=== PATIENT | male | born 1960 | race Caucasian/White ===

== ENCOUNTER → 2016-12-31 | Outpatient (CLI) | payer OTHER ==
[~2016-12-31] MED LIST: FLV1 PO; MULT-589 PO; THM100 PO
== END | disposition home or self-care (01) ==
LOC: C.LAB 19:55
DX: Z02.83 Encounter for blood-alcohol and blood-drug test (principal)

== ENCOUNTER 2018-09-13 18:27 | Inpatient (IN) ==
[2018-09-13] MEDS ORDERED: MoRPHine SULFATE 4 MG/ML 1 ML CARP\\VIAL IV STA (19:15)
[2018-09-13] MEDS ORDERED: SODIUM CHLORIDE 0.9% 1000ML 1,000 ML IV ONE (19:15)
[2018-09-13 19:44] LABS: Basophils # (auto) 0.01 K/uL (0-0.2); Basophils % (auto) 0.3 %; Eosinophils # (auto) 0.04 K/uL (0-0.5); Eosinophils % (auto) 1.1 %; Hematocrit (blood only) 35.3 % (42-52); Hemoglobin 12.4 g/dL (14.0-18.0); Immature Granulocytes # (auto) 0.01 K/uL (0.00-0.02); Immature Granulocytes % (auto) 0.3 %; Lymphocytes # (auto) 0.51 K/uL (1.2-3.4); Lymphocytes % (auto) 14.6 %; Mean Corpuscular Hgb Conc 35.1 g/dL (32-36); Mean Corpuscular Volume 85.7 fL (80-100); Mean Platelet Volume 9.2 fL (7.4-10.4); Monocytes # (auto) 0.46 K/uL (0.11-0.59); Monocytes % (auto) 13.2 %; Neutrophils # (auto) 2.46 K/uL (1.4-6.5); Neutrophils % (auto) 70.5 %; Platelet Count 114 K/uL (130-400); RDW Coefficient of Variation 16.4 % (11.5-14.5); RDW Standard Deviation 51.3 fL (36.4-46.3); Red Blood Count 4.12 M/uL (4.7-6.1); White Blood Count 3.49 K/uL (4.8-10.8)
[2018-09-13 19:54] LABS: iSTAT Creatinine 0.6 mg/dl (0.6-1.3); iSTAT Hemoglobin 11.9 g/dl (14.0-18.0); iSTAT Ionized Calcium 1.03 mmol/l (1.12-1.32); iSTAT Potassium 2.6 mEq/L (3.3-5.0)
[2018-09-13 20:02] LABS: Albumin Level 2.3 gm/dl (3.4-5.0); BUN Creatinine Ratio 11.7 (10-20); Calcium 8.2 mg/dl (8.5-10.1); Creatinine Clr Calc Pharmacy 102.2 ml/min; Est GFR (African American) 117.2; Est GFR (Non-African American) 101.1; Potassium 2.6 mmol/L (3.5-5.1)
[2018-09-13 20:05] LABS: Albumin Globulin Ratio 0.5 (0.9-2); Bilirubin,Total 1.4 mg/dl (0.2-1); Globulin 4.7 gm/dl (2.5-4.0)
[2018-09-13] MEDS ORDERED: IOVERSOL 100ml IV PRN (20:05)
--- NOTE | 2018-09-13 20:37 | CT Scan Report ---
ABDOMEN AND PELVIS CT WITH IV CONTRAST CT DOSE: 752.15 mGy.cm HISTORY: Abdominal distention. TECHNIQUE: Multiaxial CT images of the abdomen and pelvis were performed following the use of intrave nous contrast. A dose lowering technique was utilized adhering to the principles of ALARA. COMPARISON STUDY: Abdomen and pelvis CT 08/23/2015. FINDINGS: Small bilateral pleural effusions. Bibasilar densities favor subsegmental atelectasis. No p neumatosis. No pneumoperitoneum. Old, healed bilateral rib fractures. Small distal periesophageal olivier ices. Heterogeneous and nodular liver consistent with cirrhosis. No hepatic masses identified. The po rtal vein is patent. The spleen is mildly enlarged. The splenic vein is also patent. Small periumbili ted varices are also noted. Normal bladder. Mild body wall edema. The adrenal glands are unremarkable . The kidneys enhance normally. No hydronephrosis. There is a 3 mm stone within the left renal pelvis . No retroperitoneal lymphadenopathy. Normal caliber abdominal aorta. A few punctate stones within th e gallbladder fundus. No gallbladder wall thickening. Large amount of ascites. A few colonic divertic lorena. No evidence for diverticulitis. No bowel wall thickening or obstruction. Questionable thickening within the proximal to mid colon is likely due to venous congestion from the patient's cirrhosis. No rmal appendix. There is a 6.6 cm cystic lesion at the pancreatic tail. This favors a pseudocyst given the prior pancreatitis at this location. IMPRESSION: 1. Cirrhotic liver with sequela of portal hypertension including splenomegaly, abdominal varices, and a large amount of ascites. 2. Small bilateral pleural effusions. 3. Left-sided nephrolithiasis. No hydronephrosis. 4. No definite bowel wall thickening or obstruction. Normal appendix. 5. There is a 6.6 cm cystic lesion at the pancreatic tail. This favors a pseudocyst given the prior p ancreatitis at this location. 6. Cholelithiasis. Electronically signed by: Angelo Drew M.D. 09/13/2018 8:36 PM
--- NOTE | 2018-09-13 20:47 | XRay Report ---
CHEST AND ABDOMEN 2 VIEWS HISTORY: abdominal distension/constipation COMPARISON: Abdomen and pelvis CT 09/03/2018. FINDINGS: Bibasilar linear densities consistent with subsegmental atelectasis. There are small bilate ral pleural effusions. Low lung volumes. No pneumothorax. The heart is mildly enlarged. Centralizatio n of the bowel consistent with a large volume ascites. Contrast within the urinary system from the re cent CT examination. No evidence for bowel obstruction. Small diverticulum along the right side of the bladder. IMPRESSION: 1. No evidence for bowel obstruction. 2. Large amount of ascites. 3. Small bilateral pleural effusions. Electronically signed by: Angelo Drew M.D. 09/13/2018 8:46 PM
[2018-09-13] MEDS ORDERED: POTASSIUM CHLORIDE 20 MEQ/15 ML UDC PO STA (21:34)
[2018-09-13] MEDS ORDERED: CALCIUM CARBONATE 500 MG CHEWABLE TAB PO STA (21:34)
[2018-09-14] MEDS ORDERED: FUROSEMIDE 40 MG/4 ML VIAL IV STA (01:01)
[2018-09-14] MEDS ORDERED: ONDANSETRON INJ 2 MG/ML 2 ML VIAL IV PRN (01:01)
[2018-09-14] MEDS ORDERED: NITROGLYCERIN SL 0.4 MG/TAB TAB SL PRN (01:01)
[2018-09-14] MEDS ORDERED: POTASSIUM CHLORIDE 10 MEQ TABCR PO STA (01:01)
--- NOTE | 2018-09-14 01:01 | Emergency Department Note ---
Entered by Cydney Gonzales acting as a scribe for History of Present Illness General Chief complaint: Constipation Stated complaint: BLOATING, CONSTIPATION, IBS Time Seen by Provider: 09/13/18 18:56 Source: patient Mode of arrival: ambulatory Limitations: no limitations History of Present Illness Provider complaint: Constipation Onset (ago): week(s) 2 Location: buttocks (rectum) Radiation: non-radiation Pain Consistency: + other (worsening) Maximum Pain Intensity: 5 Quality: + other (constipation) Associated symptoms: + other (Additional sypmtoms: abdominal distension); no nausea/vomiting Treatments prior to arrival: none The patient is a 57 white male w/ PMHx of pancreatitis, alcoholism, alcohol induced fatty liver, thrombocytopenia, and a ventral hernia repair about 3-5 years ago who presents to the ED w/ CC of worsening constipation beginning 2 weeks ago. The patient reports that he still has bowel movements and is passing gas. He also complains of abdominal distension and notes that he has discomfort and pressure in his abdomen, particularly on the left side. He denies any nausea and vomiting. He further denies any history of abdominal surgeries, a paracentesis, and bowel obstructions. He reports that he regularly takes vitamins and uses chewing tobacco and snuff. Home Medications Home Medications Medication Instructions Recorded Confirmed Type ibuprofen [Advil] 200 mg PO Q6H PRN 09/13/18 09/13/18 History caxiepyk-[id number]-YN-lycopen-lutein 1 tab PO DAILY 09/13/18 09/13/18 History [Centrum Silver Men] Allergies Allergy/AdvReac Type Severity Reaction Status Date / Time No Known Allergies Allergy Unverified 08/11/15 15:39 Past Med/Surg History Medical History Pancreatitis (Resolved) Alcoholism (Chronic) Alcohol induced fatty liver (Chronic) Thrombocytopenia (Chronic) Surgical History H/O ventral hernia repair (Chronic) Social History Preferred Language: Bhutanese Communication Ability: Effective 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 and A total of 10 systems reviewed and were otherwise negative Physical Exam Vital Signs Vital Signs - 24 hr 09/13/18 18:34 09/13/18 21:17 09/13/18 22:04 Temperature 36.9 C Temperature Source Oral Sepsis Recent Fever Within 48 Hours No Sepsis Action Taken by Nursing No Action Required Pulse Rate 139 H Pulse Rate [Right Finger] 93 H Respiratory Rate 22 Respiratory Effort / Characteristics Non-Labored Spontaneous Respiratory Depth Normal Respiratory Pattern Regular Blood Pressure 117/79 Blood Pressure [Left Arm] 115/87 Blood Pressure Mean 91 Blood Pressure Mean [Left Arm] 96 Blood Pressure Position Lying Pulse Oximetry 97 96 Oxygen Delivery Method Room Air Room Air Room Air 09/13/18 23:29 09/14/18 00:21 Temperature Temperature Source Sepsis Recent Fever Within 48 Hours Sepsis Action Taken by Nursing Pulse Rate 90 Pulse Rate [Right Finger] 90 Respiratory Rate Respiratory Effort / Characteristics Respiratory Depth Respiratory Pattern Blood Pressure 128/82 Blood Pressure [Left Arm] 128/82 Blood Pressure Mean Blood Pressure Mean [Left Arm] 97 Blood Pressure Position Pulse Oximetry 96 96 Oxygen Delivery Method Room Air Room Air GENERAL: Cachectic, chronically-ill appearing, in no acute distress. EYE EXAM: Normal conjunctiva. PERRL, no anisocoria and EOM's grossly intact w/o pain. OROPHARYNX: No exudate, posterior pharynx is clear, no tonsillar/uvular deviation or swelling. NECK: Supple, no nuchal rigidity, no adenopathy, non-tender. no signs of meningismus. LUNGS: Clear to auscultation. Normal chest wall mechanics. HEART: No MRG. Tachycardic rate and normal rhythm. ABDOMEN: Obvious distension, pressure with palpation but no true pain, no rebound or guarding. BACK: No CVA TTP. SKIN: No rashes and no bruising. UPPER EXTREMITIES: Upper extremities are grossly normal. LOWER EXTREMITIES: No pitting edema. No calf pain. NEURO EXAM: Cranial nerves II-XII grossly intact, normal speech, 5/5 strength throughout, moves all 4 extremities on command w/o issue. Course 1899: The patient was evaluated in room B8, and a complete history and physical examination were performed. 2125: I reviewed the patient's case with Dr. Pepe - HospitalistLe. Dr. Pepe will evaluate the patient for further management. Consultations Consultation #1: I reviewed the patient's case with Dr. Pepe - HospitalistLe. Dr. Pepe will evaluate the patient for further management. Time: 21:26 Administered Medications Ioversol (Optiray 320 100ml) 94 ml IV ONCE PRN PRN Reason: Interaction Checking Stop: 09/17/18 20:04 Last Admin: 09/13/18 20:06 Dose: 94 ml Documented by: [id number] Discontinued Medications Calcium Carbonate (Tums) 1,500 mg PO NOW STA Stop: 09/13/18 21:35 Last Admin: 09/13/18 22:23 Dose: 1,500 mg Documented by: [id number] Sodium Chloride (Nss 1000ml) 1,000 mls @ 999 mls/hr IV .Q1H1M ONE Stop: 09/13/18 20:15 Last Infusion: 09/13/18 20:52 Dose: 0 mls/hr Documented by: [id number] Admin: 09/13/18 19:41 Dose: 999 mls/hr Documented by: [id number] Morphine Sulfate (Morphine Sulfate) 4 mg IV NOW STA Stop: 09/13/18 19:16 Last Admin: 09/13/18 19:40 Dose: 4 mg Documented by: [id number] Potassium Chloride (Heydi Ciel Elix) 40 meq PO NOW STA Stop: 09/13/18 21:35 Last Admin: 09/13/18 22:23 Dose: 40 meq Documented by: [id number] Medical Decision Making Differential Diagnosis Differential diagnosis: Etiologies such as appendicitis, diverticulitis, PUD, biliary pathology, UTI, pancreatitis, obstruction, mesenteric ischemia, aortic pathology, infections, inflammatory bowel disease, renal colic, as well as others were entertained. Medical Records Attestation: I reviewed the patient's medical records. Home Medications Current Medication List: was personally reviewed by me Laboratory Data Attestation: I reviewed the patient's lab results. Result diagrams: 09/13/18 19:31 09/13/18 19:31 Lab Results 09/13/18 09/13/18 09/13/18 Range/Units 19:31 19:31 19:38 WBC 3.49 L (4.8-10.8) K/uL RBC 4.12 L (4.7-6.1) M/uL Hgb 12.4 L (14.0-18.0) g/dL POC Hgb 11.9 L (14.0-18.0) g/dl Hct 35.3 L (42-52) % POC Hct 35 L (42-52) % MCV 85.7 (80-100) fL MCH 30.1 (25-34) pg MCHC 35.1 (32-36) g/dL RDW Std Deviation 51.3 H (36.4-46.3) fL RDW Coeff of Kacie 16.4 H (11.5-14.5) % Plt Count 114 L (130-400) K/uL MPV 9.2 (7.4-10.4) fL Immature Gran % (Auto) 0.3 % Neut % (Auto) 70.5 % Lymph % (Auto) 14.6 % Beckham % (Auto) 13.2 % Eos % (Auto) 1.1 % Baso % (Auto) 0.3 % Immature Gran # (Auto) 0.01 (0.00-0.02) K/uL Neut # (Auto) 2.46 (1.4-6.5) K/uL Lymph # (Auto) 0.51 L (1.2-3.4) K/uL Beckham # (Auto) 0.46 (0.11-0.59) K/uL Eos # (Auto) 0.04 (0-0.5) K/uL Baso # (Auto) 0.01 (0-0.2) K/uL POC Sodium 135 (135-144) mEq/L Sodium 134 L (136-145) mmol/L POC Potassium 2.6 L (3.3-5.0) mEq/L Potassium 2.6 L (3.5-5.1) mmol/L POC Chloride 94 L (101-112) mEq/L Chloride 99 (98-107) mmol/L Carbon Dioxide 28 (21-32) mmol/L POC Total CO2 26 (24-31) mEq/l Anion Gap 7.0 (3-11) POC Anion Gap 19.0 (16-25) mmol/L POC BUN 8 (7-18) mg/dl BUN 9 (7-18) mg/dl Creatinine 0.79 (0.6-1.4) mg/dl POC Creatinine 0.6 (0.6-1.3) mg/dl Est Cr Clr Drug Dosing 102.2 ml/min Est GFR ( Amer) 117.2 Est GFR (Non-Af Amer) 101.1 BUN/Creatinine Ratio 11.7 (10-20) Glucose 94 (70-99) mg/dl POC Glucose (other) 99 (70-99) mg/dl Calcium 8.2 L (8.5-10.1) mg/dl POC Ioniz Calcium Starla 1.03 L (1.12-1.32) mmol/l Total Bilirubin 1.4 H (0.2-1) mg/dl AST 132 H (15-37) U/L ALT 68 (12-78) U/L Alkaline Phosphatase 226 H (45-117) U/L Total Protein 7.0 (6.4-8.2) gm/dl Albumin 2.3 L (3.4-5.0) gm/dl Globulin 4.7 H (2.5-4.0) gm/dl Albumin/Globulin Ratio 0.5 L (0.9-2) Lipase 168 (73-393) U/L Urine Color Urine Appearance Urine pH Ur Specific [place] Urine Protein Urine Glucose (UA) Urine Ketones Urine Blood Urine Nitrite Urine Bilirubin Urine Urobilinogen Ur Leukocyte Esterase Urine WBC (Auto) Urine RBC (Auto) U Hyaline Cast (Auto) U Epithel Cells (Auto) Urine Bacteria (Auto) Ur Renal Epithelial Cell Urine Crystals Calcium Oxalate Crystal Uric Acid Crystals Triple Phos Crystals Other Crystals Amorphous Sediment Granular Casts Waxy Casts RBC Casts WBC Casts Other Casts Urine Mucus Urine Other Urine Trichomonas Urine Yeast Urine Sperm Ur Oval Fat Bodies 09/13/18 Range/Units 21:33 WBC (4.8-10.8) K/uL RBC (4.7-6.1) M/uL Hgb (14.0-18.0) g/dL POC Hgb (14.0-18.0) g/dl Hct (42-52) % POC Hct (42-52) % MCV (80-100) fL MCH (25-34) pg MCHC (32-36) g/dL RDW Std Deviation (36.4-46.3) fL RDW Coeff of Kacie (11.5-14.5) % Plt Count (130-400) K/uL MPV (7.4-10.4) fL Immature Gran % (Auto) % Neut % (Auto) % Lymph % (Auto) % Beckham % (Auto) % Eos % (Auto) % Baso % (Auto) % Immature Gran # (Auto) (0.00-0.02) K/uL Neut # (Auto) (1.4-6.5) K/uL Lymph # (Auto) (1.2-3.4) K/uL Beckham # (Auto) (0.11-0.59) K/uL Eos # (Auto) (0-0.5) K/uL Baso # (Auto) (0-0.2) K/uL POC Sodium (135-144) mEq/L Sodium (136-145) mmol/L POC Potassium (3.3-5.0) mEq/L Potassium (3.5-5.1) mmol/L POC Chloride (101-112) mEq/L Chloride (98-107) mmol/L Carbon Dioxide (21-32) mmol/L POC Total CO2 (24-31) mEq/l Anion Gap (3-11) POC Anion Gap (16-25) mmol/L POC BUN (7-18) mg/dl BUN (7-18) mg/dl Creatinine (0.6-1.4) mg/dl POC Creatinine (0.6-1.3) mg/dl Est Cr Clr Drug Dosing ml/min Est GFR ( Amer) Est GFR (Non-Af Amer) BUN/Creatinine Ratio (10-20) Glucose (70-99) mg/dl POC Glucose (other) (70-99) mg/dl Calcium (8.5-10.1) mg/dl POC Ioniz Calcium Starla (1.12-1.32) mmol/l Total Bilirubin (0.2-1) mg/dl AST (15-37) U/L ALT (12-78) U/L Alkaline Phosphatase (45-117) U/L Total Protein (6.4-8.2) gm/dl Albumin (3.4-5.0) gm/dl Globulin (2.5-4.0) gm/dl Albumin/Globulin Ratio (0.9-2) Lipase (73-393) U/L Urine Color Cancelled Urine Appearance Cancelled Urine pH Cancelled Ur Specific [place] Cancelled Urine Protein Cancelled Urine Glucose (UA) Cancelled Urine Ketones Cancelled Urine Blood Cancelled Urine Nitrite Cancelled Urine Bilirubin Cancelled Urine Urobilinogen Cancelled Ur Leukocyte Esterase Cancelled Urine WBC (Auto) Cancelled Urine RBC (Auto) Cancelled U Hyaline Cast (Auto) Cancelled U Epithel Cells (Auto) Cancelled Urine Bacteria (Auto) Cancelled Ur Renal Epithelial Cell Cancelled Urine Crystals Cancelled Calcium Oxalate Crystal Cancelled Uric Acid Crystals Cancelled Triple Phos Crystals Cancelled Other Crystals Cancelled Amorphous Sediment Cancelled Granular Casts Cancelled Waxy Casts Cancelled RBC Casts Cancelled WBC Casts Cancelled Other Casts Cancelled Urine Mucus Cancelled Urine Other Cancelled Urine Trichomonas Cancelled Urine Yeast Cancelled Urine Sperm Cancelled Ur Oval Fat Bodies Cancelled Imaging Data Radiologist's Impression: Radiology results as stated below per my review and the radiologist's interpretation: CHEST AND ABDOMEN 2 VIEWS HISTORY: abdominal distension/constipation COMPARISON: Abdomen and pelvis CT 09/03/2018. FINDINGS: Bibasilar linear densities consistent with subsegmental atelectasis. There are small bilateral pleural effusions. Low lung volumes. No pneumothorax. The heart is mildly enlarged. Centralization of the bowel consistent with a large volume ascites. Contrast within the urinary system from the recent CT e xamination. No evidence for bowel obstruction. Small diverticulum along the right side of the bladder. IMPRESSION: 1. No evidence for bowel obstruction. 2. Large amount of ascites. 3. Small bilateral pleural effusions. Electronically signed by: Angelo Drew M.D. 09/13/2018 8:46 PM A[address]OMEN AND PELVIS CT WITH IV CONTRAST CT DOSE: 752.15 mGy.cm HISTORY: Abdominal distention. TECHNIQUE: Multiaxial CT images of the abdomen and pelvis were performed following the use of intravenous contrast. A dose lowering technique was utilized adhering to the principles of ALARA. COMPARISON STUDY: Abdomen and pelvis CT 08/23/2015. FINDINGS: Small bilateral pleural effusions. Bibasilar densities favor subsegmental atelectasis. No pneumatosis. No pneumoperitoneum. Old, healed bilateral rib fractures. Small distal periesophageal varices. Heterogeneous and nodular liver consistent with cirrhosis. No hepatic masses identified. The portal vein is patent. The spleen is mildly enlarged. The splenic vein is also patent. Small periumbilical varices are also noted. Normal bladder. Mild body wall edema. The adrenal glands are unremarkable. The kidneys enhance normally. No hydronephrosis. There is a 3 mm stone within the left renal pelvis. No ret roperitoneal lymphadenopathy. Normal caliber abdominal aorta. A few punctate stones within the gallbladder fundus. No gallbladder wall thickening. Large amount of ascites. A few colonic diverticula. No evidence for diverticulitis. No bowel wall thickening or obstruction. Questionable thickening within the proximal to mid colon is likely due to venous congestion from the patient's cirrhosis. Normal appendix. There is a 6.6 cm cystic lesion at the pancreatic tail. This favors a pseudocyst given the prior pancreatitis at this location. IMPRESSION: 1. Cirrhotic liver with sequela of portal hypertension including splenomegaly, abdominal varices, and a large amount of ascites. 2. Small bilateral pleural effusions. 3. Left-sided nephrolithiasis. No hydronephrosis. 4. No definite bowel wall thickening or obstruction. Normal appendix. 5. There is a 6.6 cm cystic lesion at the pancreatic tail. This favors a pseudocyst given the prior pancreatitis at this location. 6. Cholelithiasis. Electronically signed by: Angelo Drew M.D. 09/13/2018 8:36 PM ECG Data Attestation: I personally reviewed and interpreted this ECG as follows: Indication: other (constipation) Rate (beats per minute): 107 Rhythm: sinus tachycardia Findings: + other (normal intervals) and + left axis deviation Blood Pressure Blood Pressure Findings: Normal blood pressure MDM Narrative Patient was seen and evaluated the bedside. The patient reportedly was complaining of some abdominal distention and has been having small incomplete bowel movements. The patient does have prior history of pancreatitis. Patient did have blood work completed along with a CT abdomen pelvis. The patient's CT does show concerning for cirrhotic liver portal hypertension and a pancreatic pseudocyst. Given that he has not had a prior ascites he does have some hypokalemia and his liver dysfunction believe he would benefit from further i npatient treatment possible ascites and hepatology follow-up. Patient was admitted to the medicine service. Impression & Plan Ascites, Liver disease, Abdominal distension, Hypokalemia, Pancreatic pseudocyst Discharge Plan Visit Data *Final* Discharge Date/Time: 09/14/18 00:21 Chief Complaint: Constipation Stated Complaint: BLOATING, CONSTIPATION, IBS ED Provider: Pabliot Combs Discharge Problem: Ascites, Liver disease, Abdominal distension, Hypokalemia, Pancreatic pseudocyst Patient Disposition: Admitted As Inpatient Discharge Instructions Interventions: ED Discharge Assessment Last Done: 09/14/18 00:21 The scribe's documentation has been prepared under my direction and personally reviewed by me in its entirety. I confirm that the note above accurately reflects all work, treatment, procedures, and medical decision making performed by me.
[2018-09-14] MEDS ORDERED: FUROSEMIDE 40 MG in SYRINGE 0 ML IV SCH (01:30)
[2018-09-14] MEDS: POTASSIUM CHLORIDE / WTR 10 MEQ/100 ML PLCT IV SCH ×2 (01:35→02:43)
--- NOTE | 2018-09-14 01:41 | History and Physical Report ---
DATE OF ADMISSION: 09/13/2018 CHIEF COMPLAINT: Distended abdomen. HISTORY OF PRESENT ILLNESS: This patient is a 57-year-old male with past medical history significant for alcoholism and necrotizing pancreatitis who was admitted to [facility] in 07/2015. At that time, he had alcoholic hepatitis, aspiration pneumonitis and necrotizing pancreatitis with alcohol withdrawal and prolonged stay in the hospital, was confused for many days and later he improved and got discharged home. He had a followup with Gastroenterology at that time and had colonoscopy which showed a polyp and was recommended to repeat colonoscopy in 3 years and he seems to be not following with doctors. He states that he quit alcohol in 02/2018. He is not drinking since then. He lives alone. Since last couple of weeks, his abdomen is getting distended and it got worse and worse and now he is very tense and also developed some abdominal discomfort in the left lower quadrant and is taking ibuprofen for his pain. He was not getting better, so he came to the Emergency Room. Imaging studies in the Emergency Room showed cirrhotic liver with portal hypertension including splenomegaly, abdominal varices and a large amount of ascites, small bilateral pleural effusions, 6.6 cm cystic lesion of the pancreatic tail, this favors pseudocyst and cholelithiasis. The patient is afebrile. Hemodynamics are stable. Denies any chest pain. No shortness of breath. No cough. No fever. No headaches. No dizziness. No blurred vision. No earache. No sore throat. No difficulty swallowing. Appetite is good. Currently, feeling hungry and wants to eat. He states he moved his bowels, but no black stools or blood in the stools. Normal bladder movements. He states once in a while he gets some burning micturition. No hematuria. He has swelling in the legs. ALLERGIES: No known drug allergies. PAST MEDICAL HISTORY: As mentioned above. PAST SURGICAL HISTORY: Colonoscopy, laparoscopic inguinal hernia repair and eye surgery. MEDICATIONS: He is currently taking only ibuprofen as needed and multivitamins. FAMILY HISTORY: Significant for mother had lung cancer. Father had a stroke and hypertension. Sister has Parkinson's. Brother has coronary artery disease. SOCIAL HISTORY: He is currently living alone. He quit alcohol in 02/2018. No drug use. REVIEW OF SYMPTOMS: As per HPI. Rest of review of systems negative. PHYSICAL EXAMINATION: GENERAL: The patient is thin and frail, not in acute distress. VITAL SIGNS: Temperature 36.9, pulse 90, respiratory rate 22, blood pressure 128/82 and oxygen 96% on room air. HEENT: No pallor. No icterus. Pupils are equal, round and reactive to light. NECK: No JVD. No neck mass. No carotid bruit. CARDIOVASCULAR: S1, S2 heard. Regular rate and rhythm. No murmur. No gallop. RESPIRATORY SYSTEM: Normal AP diameter. No accessory muscle use. No wheezing. No crackles. ABDOMEN: Tense distention. Mild left lower quadrant tenderness. No guarding. CENTRAL NERVOUS SYSTEM: Cranial nerves II through XII are grossly intact. Nonfocal. EXTREMITIES: Lower extremity edema present. LABORATORY DATA: WBC 3.4, hemoglobin 12.4, hematocrit 35.3 and platelets 114. Sodium 134, potassium 2.6, chloride 99, CO2 of 28, BUN 9, creatinine 0.7, serum glucose 94, calcium 8.2, total bilirubin 1.4, AST 132, ALT 60, alkaline phosphatase 226 and lipase 168. Urinalysis is pending. Chest and abdominal x-ray, no evidence of bowel obstruction, large amount of ascites and small bilateral pleural effusions. CT scan of the abdomen and pelvis with I.V. contrast showed cirrhotic liver with sequelae of portal hypertension including splenomegaly, abdominal varices and large amount of ascites, small bilateral pleural effusions, left-sided nephrolithiasis, no hydronephrosis, no definite bowel wall thickening or obstruction, normal appendix, there is a 6.6 cm cystic lesion at the pancreatic tail, this favors a pseudocyst given the prior pancreatitis at this location and cholelithiasis. Electrocardiogram shows sinus tachycardia at a rate of [address] abnormalities seen. ASSESSMENT AND PLAN: This is a 57-year-old male who presents with abdominal discomfort and distended abdomen. 1. Abdominal discomfort and distended abdomen with tense ascites and CAT scan showing cirrhotic liver, history of alcoholism, he states he quit in 02/2018. We will give a dose of I.V. Lasix. Consult Gastroenterology for possible diagnostic and therapeutic paracentesis. We will empirically place on I.V. Rocephin. The patient has some abdominal discomfort. We will closely monitor on Med/Surg Tele. 2. Hypokalemia. We will replace and follow the laboratories in a.m. 3. Pancytopenia with white blood cells of 3.4, hemoglobin of 12.4 and platelets of 114, most likely from liver cirrhosis. We will follow the laboratories. 4. Alcoholism, he states he quit in 02/2018. We will watch for any alcohol withdrawal. We will place him on multivitamins and thiamine. 5. History of pancreatitis. Lipase is normal. 6. Pancreatic cyst. possible pseudocyst. Await GI input. 7. Deep venous thrombosis prophylaxis, sequential compression devices for now. 8. Disposition: We will closely monitor on Med/Surg Tele. Level 1 full code. MTDD
[2018-09-14] MEDS: cefTRIAXone SODIUM 2,000 MG in DEXTROSE 5% 50 ML IV SCH (03:13)
[2018-09-14 05:55] LABS: Hematocrit (blood only) 31.4 % (42-52); Hemoglobin 11.1 g/dL (14.0-18.0); Mean Corpuscular Hgb Conc 35.4 g/dL (32-36); Mean Corpuscular Volume 85.1 fL (80-100); RDW Coefficient of Variation 16.5 % (11.5-14.5); RDW Standard Deviation 51.5 fL (36.4-46.3); Red Blood Count 3.69 M/uL (4.7-6.1); White Blood Count 2.61 K/uL (4.8-10.8)
[2018-09-14 06:32] LABS: Albumin Level 1.9 gm/dl (3.4-5.0); BUN Creatinine Ratio 14.2 (10-20); Basophils # (auto) 0.02 K/uL (0-0.2); Basophils % (auto) 0.8 %; Bilirubin Direct 0.5 mg/dl (0-0.2); Bilirubin,Total 1.2 mg/dl (0.2-1); Calcium 7.9 mg/dl (8.5-10.1); Creatinine Clr Calc Pharmacy 128.2 ml/min; Echinocytes 1+; Eosinophils # (auto) 0.07 K/uL (0-0.5); Eosinophils % (auto) 2.7 %; Est GFR (African American) 128.6; Est GFR (Non-African American) 110.9; Lymphocytes % (auto) 19.2 %; Magnesium 1.6 mg/dl (1.8-2.4); Mean Platelet Volume 8.9 fL (7.4-10.4); Monocytes % (auto) 19.2 %; Neutrophils # (auto) 1.52 K/uL (1.4-6.5); Neutrophils % (auto) 58.1 %; Platelet Count 91 K/uL (130-400); Potassium 3.7 mmol/L (3.5-5.1)
[2018-09-14] MEDS ORDERED: LORazepam 1 MG/2 ML VIAL IV PRN (07:29)
[2018-09-14] MEDS: MAGNESIUM SULFATE / D5W 1 GM/100 ML BAG IV SCH ×2 (09:21→10:24)
--- NOTE | 2018-09-14 10:28 | Gastrointestinal Consultation ---
Date of Consultation September 14, 2018 Assessment & Plan (1) Ascites: 57 year old male with history of ETOH abuse, sober from ETOH since February 2018 admitted w/ lower extremity edema, abd distention. CT evidence of nodular appearing liver, large volume ascites. He does have chronic thrombocytop enia and elevated LFTs Elevated LFTS - MRCP - HUE, AMA, ASMA - Acute Hep panel Ascites/Edema - Diagnostic echo - Lower extremity duplex - Start low dose diuretics w/ Lasix/Aldactone - Will need diagnostic and therapeutic paracentesis - PLT > 60, INR < 1.6 - Check cell count, culture, cytology, albumin, protein - Should have IV albumin 25% 25G before and large - Low NA diet, less than 2g Cirrhosis - HUE, AMA, ASMA - PT/INR - No ETOH - Low NA diet - Less than 2g tylenol if using - OP EGD - OP colonoscopy Thank you for allowing us to participate in the care of this patient. Please call with any acute changes, questions or concerns. Please see addendum below with additional recommendation from my supervising physician. Present on Admission?: Yes Supervising Physician Co-Signing Physician Notes I performed a history and physical examination of the patient, including spe cifically on physical exam - soft, nontender abdomen. I have discussed the patient's management with Lulu. Please refer to the nurse practitioner's note for the documented findings and plan of care. 57 Male with alcoholic liver cirrhosis admitted with decompensation and ascites related to NSAIDs use. Has pedal edema on exam and tense ascites. Planned for Tap today with LVP. Last alcohol use was 6 months ago per patient. Has Gallstones on sono. Recommend: Tap today MRCP. History of Present Illness Reason for Consultation: ascites Requesting Physician: Dre Attending Physician: Zhao Erickson MD History of Present Illness 57 year old male with history of ETOH abuse, necrotizing pancreatitis, colonic polyp and others below who presented through the ED for evaluation of lower extremity edema and abdominal distention - GI asked to evaluate for cirrhosis w/ ascites. Pt was seen and evaluated, chart reviewed. He is a poor historian. Notes a history of fatty liver. Denies prior diagnosis of cirrhosis. Over the past 2/3 weeks noted lower leg edema and abdominal bloating. At first he thought he was just constipated, however, bloating persisted and worsened despite moving bowels. Decreased appetite but denies nausea, vomiting. No black/bloody stools. Denies any prior black/bloody emesis. No fever, chills, CP, SOB. Diagnosis: presumed ETOH cirrhosis sober 03/15 Decompensations Ascites: new Varices: unknown HE: none Screening EGD: due HCC: February Immunization: unknown CT: Cirrhotic liver with sequela of portal hypertension including splenomegaly, abdominal varices, and a large amount of ascites.Small bilateral pleural effusions.Left-sided nephrolithiasis. No hydronephrosis.No definite bowel wall thickening or obstruction. Normal appendix.There is a 6.6 cm cystic lesion at the pancreatic tail. This favors a pseudocyst given the prior pancreatitis at this location.Cholelithiasis. EGD: none Colonoscopy: One 4 mm polyp in the ascending colon. Resected and retrieved.One 5 mm polyp in the rectum. Resected and retrieved. Diverticulosis in the sigmoid colon.The examined portion of the ileum was normal. The examination was otherwise normal on direct and retroflexion views. Allergies Allergy/AdvReac Type Severity Reaction Status Date / Time No Known Allergies Allergy Unverified 08/11/15 15:39 Home Medications Home Medications Medication Instructions Recorded Confirmed Type ibuprofen [Advil] 200 mg PO Q6H PRN 09/13/18 09/13/18 History zrajyppo-[id number]-ES-lycopen-lutein 1 tab PO DAILY 09/13/18 09/13/18 History [Centrum Silver Men] Patient History Medical History Pancreatitis (Resolved) Alcoholism (Chronic) Alcohol induced fatty liver (Chronic) Thrombocytopenia (Chronic) Surgical History H/O ventral hernia repair (Chronic) Social History Preferred Language: Upper Sorbian Communication Ability: Effective 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 Beliefs That Will Affect Care: Moravian Moravian Beliefs: Denominational marital status: Current Living Situation: Alone current occupational status: employed Other Information That Helps Us Care for You: No Feels Safe at Home: Yes Safety Concerns: Feels Safe At This Time Smoking Status: Never smoker Tobacco Type: smokeless tobacco Cigarettes Per Day: 1 can of snuff per week Do You Dip or Chew Tobacco: Yes Hx Alcohol Use: Yes Alcohol type: beer Hx Substance Use: No Review of Systems Constitutional: + anorexia; no fever, no chills and no fatigue Respiratory: no cough, no dyspnea and no wheezing Cardiovascular: no chest pain, no radiating jaw, neck or arm pain, no dyspnea and no palpitations Gastrointestinal: + bloating, + early satiety and + nausea; no abdominal pain, no heartburn, no vomiting, no coffee ground emesis, no hematemesis, no pain with swallowing, no dysphagia, no cramping, no excessive flatulence, no change in bowel habits, no change in stools, no constipation, no diarrhea/loose stools, no fecal incontinence, no constant urge to pass stools, no blood in stools and no melena Physical Exam Constitutional: + thin and + cachectic Respiratory: normal respiratory effort, lungs clear to auscultation Cardiovascular: Rate/Rhythm: regular rate and regular rhythm Extremities: + edema Gastrointestinal (Abdomen): Inspection/Auscultation: + abdomen distended and normal bowel sounds Percussion/Palpation: + ascites (large abd ascites); no guarding and abdomen not rigid Skin: no rashes, warm and dry Psychiatric: Orientation: alert and oriented x 3 Results & Data Vital Signs (Past 12 Hours) Vital Signs Temp Pulse Pulse Resp BP BP Pulse Ox 09/14/18 07:42 37.0 C 96 H 18 131/88 92 09/14/18 04:59 107 H 09/14/18 04:14 36.6 C 72 18 121/86 94 09/14/18 00:21 90 128/82 96 09/13/18 23:29 90 128/82 96 Laboratory Results 09/14/18 09/14/18 09/14/18 Range/Units 07:39 05:22 05:22 WBC 2.61 L (4.8-10.8) K/uL RBC 3.69 L (4.7-6.1) M/uL Hgb 11.1 L (14.0-18.0) g/dL POC Hgb (14.0-18.0) g/dl Hct 31.4 L (42-52) % POC Hct (42-52) % MCV 85.1 (80-100) fL MCH 30.1 (25-34) pg MCHC 35.4 (32-36) g/dL RDW Std Deviation 51.5 H (36.4-46.3) fL RDW Coeff of Kacie 16.5 H (11.5-14.5) % Plt Count 91 L (130-400) K/uL MPV 8.9 (7.4-10.4) fL Immature Gran % (Auto) 0.0 % Neut % (Auto) 58.1 % Lymph % (Auto) 19.2 % Taylor % (Auto) 19.2 % Eos % (Auto) 2.7 % Baso % (Auto) 0.8 % Immature Gran # (Auto) 0.00 (0.00-0.02) K/uL Neut # (Auto) 1.52 (1.4-6.5) K/uL Lymph # (Auto) 0.50 L (1.2-3.4) K/uL Taylor # (Auto) 0.50 (0.11-0.59) K/uL Eos # (Auto) 0.07 (0-0.5) K/uL Baso # (Auto) 0.02 (0-0.2) K/uL Echinocytes 1+ POC Sodium (135-144) mEq/L Sodium 132 L (136-145) mmol/L POC Potassium (3.3-5.0) mEq/L Potassium 3.7 D (3.5-5.1) mmol/L POC Chloride (101-112) mEq/L Chloride 100 (98-107) mmol/L Carbon Dioxide 27 (21-32) mmol/L POC Total CO2 (24-31) mEq/l Anion Gap 5.0 (3-11) POC Anion Gap (16-25) mmol/L POC BUN (7-18) mg/dl BUN 9 (7-18) mg/dl Creatinine 0.63 (0.6-1.4) mg/dl POC Creatinine (0.6-1.3) mg/dl Est Cr Clr Drug Dosing 128.2 ml/min Est GFR ( Amer) 128.6 Est GFR (Non-Af Amer) 110.9 BUN/Creatinine Ratio 14.2 (10-20) Glucose 87 (70-99) mg/dl POC Glucose (other) (70-99) mg/dl Calcium 7.9 L (8.5-10.1) mg/dl POC Ioniz Calcium Starla (1.12-1.32) mmol/l Magnesium 1.6 L (1.8-2.4) mg/dl Total Bilirubin 1.2 H (0.2-1) mg/dl Direct Bilirubin 0.5 H (0-0.2) mg/dl AST 106 H (15-37) U/L ALT 58 (12-78) U/L Alkaline Phosphatase 191 H (45-117) U/L Total Protein 6.0 L (6.4-8.2) gm/dl Albumin 1.9 L (3.4-5.0) gm/dl Globulin (2.5-4.0) gm/dl Albumin/Globulin Ratio (0.9-2) Lipase (73-393) U/L Folate 3.95 L (>5.38) ng/ml Urine Color Urine Appearance Urine pH Ur Specific Pup[place]ky Urine Protein Urine Glucose (UA) Urine Ketones Urine Blood Urine Nitrite Urine Bilirubin Urine Urobilinogen Ur Leukocyte Esterase Urine WBC (Auto) Urine RBC (Auto) U Hyaline Cast (Auto) U Epithel Cells (Auto) Urine Bacteria (Auto) Ur Renal Epithelial Cell Urine Crystals Calcium Oxalate Crystal Uric Acid Crystals Triple Phos Crystals Other Crystals Amorphous Sediment Granular Casts Waxy Casts RBC Casts WBC Casts Other Casts Urine Mucus Urine Other Urine Trichomonas Urine Yeast Urine Sperm Ur Oval Fat Bodies 09/13/18 09/13/18 09/13/18 Range/Units 21:33 19:38 19:31 WBC (4.8-10.8) K/uL RBC (4.7-6.1) M/uL Hgb (14.0-18.0) g/dL POC Hgb 11.9 L (14.0-18.0) g/dl Hct (42-52) % POC Hct 35 L (42-52) % MCV (80-100) fL MCH (25-34) pg MCHC (32-36) g/dL RDW Std Deviation (36.4-46.3) fL RDW Coeff of Kacie (11.5-14.5) % Plt Count (130-400) K/uL MPV (7.4-10.4) fL Immature Gran % (Auto) % Neut % (Auto) % Lymph % (Auto) % Taylor % (Auto) % Eos % (Auto) % Baso % (Auto) % Immature Gran # (Auto) (0.00-0.02) K/uL Neut # (Auto) (1.4-6.5) K/uL Lymph # (Auto) (1.2-3.4) K/uL Taylor # (Auto) (0.11-0.59) K/uL Eos # (Auto) (0-0.5) K/uL Baso # (Auto) (0-0.2) K/uL Echinocytes POC Sodium 135 (135-144) mEq/L Sodium 134 L (136-145) mmol/L POC Potassium 2.6 L (3.3-5.0) mEq/L Potassium 2.6 L (3.5-5.1) mmol/L POC Chloride 94 L (101-112) mEq/L Chloride 99 (98-107) mmol/L Carbon Dioxide 28 (21-32) mmol/L POC Total CO2 26 (24-31) mEq/l Anion Gap 7.0 (3-11) POC Anion Gap 19.0 (16-25) mmol/L POC BUN 8 (7-18) mg/dl BUN 9 (7-18) mg/dl Creatinine 0.79 (0.6-1.4) mg/dl POC Creatinine 0.6 (0.6-1.3) mg/dl Est Cr Clr Drug Dosing 102.2 ml/min Est GFR ( Amer) 117.2 Est GFR (Non-Af Amer) 101.1 BUN/Creatinine Ratio 11.7 (10-20) Glucose 94 (70-99) mg/dl POC Glucose (other) 99 (70-99) mg/dl Calcium 8.2 L (8.5-10.1) mg/dl POC Ioniz Calcium Starla 1.03 L (1.12-1.32) mmol/l Magnesium (1.8-2.4) mg/dl Total Bilirubin 1.4 H (0.2-1) mg/dl Direct Bilirubin (0-0.2) mg/dl AST 132 H (15-37) U/L ALT 68 (12-78) U/L Alkaline Phosphatase 226 H (45-117) U/L Total Protein 7.0 (6.4-8.2) gm/dl Albumin 2.3 L (3.4-5.0) gm/dl Globulin 4.7 H (2.5-4.0) gm/dl Albumin/Globulin Ratio 0.5 L (0.9-2) Lipase 168 (73-393) U/L Folate (>5.38) ng/ml Urine Color Cancelled Urine Appearance Cancelled Urine pH Cancelled Ur Specific [place] Cancelled Urine Protein Cancelled Urine Glucose (UA) Cancelled Urine Ketones Cancelled Urine Blood Cancelled Urine Nitrite Cancelled Urine Bilirubin Cancelled Urine Urobilinogen Cancelled Ur Leukocyte Esterase Cancelled Urine WBC (Auto) Cancelled Urine RBC (Auto) Cancelled U Hyaline Cast (Auto) Cancelled U Epithel Cells (Auto) Cancelled Urine Bacteria (Auto) Cancelled Ur Renal Epithelial Cell Cancelled Urine Crystals Cancelled Calcium Oxalate Crystal Cancelled Uric Acid Crystals Cancelled Triple Phos Crystals Cancelled Other Crystals Cancelled Amorphous Sediment Cancelled Granular Casts Cancelled Waxy Casts Cancelled RBC Casts Cancelled WBC Casts Cancelled Other Casts Cancelled Urine Mucus Cancelled Urine Other Cancelled Urine Trichomonas Cancelled Urine Yeast Cancelled Urine Sperm Cancelled Ur Oval Fat Bodies Cancelled 09/13/18 Range/Units 19:31 WBC 3.49 L (4.8-10.8) K/uL RBC 4.12 L (4.7-6.1) M/uL Hgb 12.4 L (14.0-18.0) g/dL POC Hgb (14.0-18.0) g/dl Hct 35.3 L (42-52) % POC Hct (42-52) % MCV 85.7 (80-100) fL MCH 30.1 (25-34) pg MCHC 35.1 (32-36) g/dL RDW Std Deviation 51.3 H (36.4-46.3) fL RDW Coeff of Kacie 16.4 H (11.5-14.5) % Plt Count 114 L (130-400) K/uL MPV 9.2 (7.4-10.4) fL Immature Gran % (Auto) 0.3 % Neut % (Auto) 70.5 % Lymph % (Auto) 14.6 % Taylor % (Auto) 13.2 % Eos % (Auto) 1.1 % Baso % (Auto) 0.3 % Immature Gran # (Auto) 0.01 (0.00-0.02) K/uL Neut # (Auto) 2.46 (1.4-6.5) K/uL Lymph # (Auto) 0.51 L (1.2-3.4) K/uL Taylor # (Auto) 0.46 (0.11-0.59) K/uL Eos # (Auto) 0.04 (0-0.5) K/uL Baso # (Auto) 0.01 (0-0.2) K/uL Echinocytes POC Sodium (135-144) mEq/L Sodium (136-145) mmol/L POC Potassium (3.3-5.0) mEq/L Potassium (3.5-5.1) mmol/L POC Chloride (101-112) mEq/L Chloride (98-107) mmol/L Carbon Dioxide (21-32) mmol/L POC Total CO2 (24-31) mEq/l Anion Gap (3-11) POC Anion Gap (16-25) mmol/L POC BUN (7-18) mg/dl BUN (7-18) mg/dl Creatinine (0.6-1.4) mg/dl POC Creatinine (0.6-1.3) mg/dl Est Cr Clr Drug Dosing ml/min Est GFR ( Amer) Est GFR (Non-Af Amer) BUN/Creatinine Ratio (10-20) Glucose (70-99) mg/dl POC Glucose (other) (70-99) mg/dl Calcium (8.5-10.1) mg/dl POC Ioniz Calcium Starla (1.12-1.32) mmol/l Magnesium (1.8-2.4) mg/dl Total Bilirubin (0.2-1) mg/dl Direct Bilirubin (0-0.2) mg/dl AST (15-37) U/L ALT (12-78) U/L Alkaline Phosphatase (45-117) U/L Total Protein (6.4-8.2) gm/dl Albumin (3.4-5.0) gm/dl Globulin (2.5-4.0) gm/dl Albumin/Globulin Ratio (0.9-2) Lipase (73-393) U/L Folate (>5.38) ng/ml Urine Color Urine Appearance Urine pH Ur Specific [place] Urine Protein Urine Glucose (UA) Urine Ketones Urine Blood Urine Nitrite Urine Bilirubin Urine Urobilinogen Ur Leukocyte Esterase Urine WBC (Auto) Urine RBC (Auto) U Hyaline Cast (Auto) U Epithel Cells (Auto) Urine Bacteria (Auto) Ur Renal Epithelial Cell Urine Crystals Calcium Oxalate Crystal Uric Acid Crystals Triple Phos Crystals Other Crystals Amorphous Sediment Granular Casts Waxy Casts RBC Casts WBC Casts Other Casts Urine Mucus Urine Other Urine Trichomonas Urine Yeast Urine Sperm Ur Oval Fat Bodies (1) Ascites Ascites type: due to alcoholic cirrhosis Qualified Code(s): K70.31 - Alcoholic cirrhosis of liver with ascites
[2018-09-14 11:06] LABS: INR 1.5 (0.9-1.1); Partial Thromboplastin Ratio 1.2; Partial Thromboplastin Time 31.6 Seconds (21.0-31.0); Prothrombin Time 15.1 Seconds (9.0-12.0)
[2018-09-14] MEDS: THIAMINE HCL 100 MG TAB PO SCH (11:22)
[2018-09-14] MEDS: CEROVITE ADV FORMULA TAB PO SCH (11:22)
[2018-09-14 11:26] LABS: Albumin Level 2.3 gm/dl (3.4-5.0); Bilirubin Direct 0.8 mg/dl (0-0.2); Bilirubin,Total 1.4 mg/dl (0.2-1); Ferritin 113.4 ng/ml (8-388); Total Protein 6.7 gm/dl (6.4-8.2)
[2018-09-14 11:37] LABS: Hepatitis B Surface Antigen Neg (Neg)
[2018-09-14 12:06] LABS: Hepatitis C IgG 13Yrs+Old_Rflx Neg (Neg)
[2018-09-14] MEDS ORDERED: ALBUMIN 25% 50 ML IV ONE ×2 (12:47→19:07)
[2018-09-14] MEDS ORDERED: MULTI-VITAMIN INFUSION 10 ML, THIAMINE HCL 100 MG, FOLIC ACID 1 MG in SODIUM CHLORIDE 0... IV SCH (13:15)
[2018-09-14 13:20] LABS: BUN Creatinine Ratio 12.4 (10-20); Calcium 8.1 mg/dl (8.5-10.1); Creatinine Clr Calc Pharmacy 115.4 ml/min; Est GFR (African American) 123.1; Est GFR (Non-African American) 106.2
[2018-09-14 13:22] LABS: Albumin Globulin Ratio 0.5 (0.9-2); Bilirubin,Total 1.3 mg/dl (0.2-1); Globulin 4.2 gm/dl (2.5-4.0); Total Protein 6.2 gm/dl (6.4-8.2)
[2018-09-14 14:05] LABS: Appearance Urine Clear (Clear); Blood Urine Negative (Negative); Color Urine Dark Yellow; Glucose Urine UA Negative (Negative); Ketones Urine Negative (Negative); Leukocyte Esterase Urine Negative (Negative); Nitrite Urine Negative (Negative); Protein Urine Negative (Negative); Specific Gravity Urine 1.041 (1.000-1.030); Urobilinogen Urine Negative (Negative)
[2018-09-14 14:13] LABS: Bilirubin Urine Negative (Negative); Ictotest Urine Negative (Negative)
--- NOTE | 2018-09-14 14:28 | Magnetic Resonance Report ---
MR MRCP CLINICAL HISTORY: gallstones, elevated LFTs, cirrhosis, hx nec pancreatitis COMPARISON STUDY: CT scan dated 09/13/2018 FINDINGS: A breath-hold MRCP was performed. MIP images were acquired. There is a large volume of ascites. The liver has a cirrhotic morphology. The spleen is enlarged measuring 13.5 cm. There is a 6 cm cystic pancreatic mass, possibly representing a pseudocyst. This contains a small leatha unt of debris. No gallstones are visualized. There is no ductal dilatation. There are no filling defects to indicate common bile duct calculi. The examination is limited from a technical standpoint due to the large volume of ascites. IMPRESSION: 1. Moderately limited study from a technical standpoint due to the patient's large volume of ascites 2. Cirrhotic morphology of the liver. 3. Splenomegaly. 4. No evidence of ductal dilatation. No ductal filling defects identified 5. 6 cm cystic pancreatic mass containing debris. This likely represents a pseudocyst. Electronically signed by: Benoit Cowan M.D. 09/14/2018 2:26 PM
--- NOTE | 2018-09-14 15:44 | Hospitalist Progress Note ---
Date of Service September 14, 2018 Assessment & Plan (1) Ascites: Cirrhosis -ascites x 2 weeks -given history of alcoholism, last drink reported by patient as February 2018, there is a good chance that ascites may be due to Cirrhosis -CT abdomen: Cirrhotic liver with sequela of portal hypertension including splenomegaly, abdominal varices, and a large amount of ascites. -paracentesis ordered for 09/14/18 and albumin to be given before paracentesis, will give albumin afterwards when paracentesis is down -will get echocardiogram to assess cardiac function to rule out non-liver source of fluid overload -left lower extremity edema may be from cirrhosis but will obtain lower extremity ultrasound to rule out DVT -continue ceftriaxone empirically in case of Spontaneous bacterial peritonitis -Low NA diet, less than 2g Splenomegaly -seen on MRCP on 09/14/18 -No evidence of bile ductal dilatation on MRCP Pancreatic pseudocyst -6 cm cystic pancreatic mass containing debris. This likely represents a pseudocyst. seen on MRCP on 09/14/18 Transaminitis - gastroenterology service sent HUE, AMA, ASMA, Acute Hep panels Hypoalbumineria -admission serum albumin 1.9 -give albumin before and after the paracentesis Pancytopenia -anemia and thrombocytopenia -admission white blood cells of 3.4, hemoglobin of 12.4 and platelets of 114, most likely from liver cirrhosis Folic acid deficiency -give folic acid Alcoholism in the past -ativan prn if needed in case of ETOH withdrawal -folic acid -multivitamins and thiamine Hyponatremia -admission serum sodium 132 -monitor Hypokalemia -admission serum potassium 2.6 -now repleted to 4, continue to monitor DVT ppx: start SCDs once ultrasound of lower extremities rule out DVT Full Code Subjective Patient seen and examined prior to going down to the MRCP. Patient had distended abdomen. swelling of left lower extremities. no calf tenderness. Patient breathing on room air and no chest pain. denies acute shortness of breath. no vomiting. no fever. reports swelling of abdomen 2 weeks ago Physical Exam Eyes: PERRL, conjunctivae normal, anicteric sclerae EOM intact bilaterally ENMT: external ear and nose normal, oropharynx normal Neck: trachea midline, no thyromegaly normal visual inspection Respiratory: normal respiratory effort, lungs clear to auscultation Cardiovascular: Rate/Rhythm: regular rate and regular rhythm Gastrointestinal (Abdomen): Inspection/Auscultation: + abdomen distended (caput medusae) and normal bowel sounds Musculoskeletal: Head/Neck/Chest: normocephalic and head atraumatic Extremities: + lower leg abnormality (left lower extremity swelling) Neurologic: PERRL, EOMI, accommodation nl, no face palsy, no dysarthria CN's II-XI intact bilaterally Psychiatric: A+Ox3, euthymic affect Results & Data Vital Signs (Past 12 Hours) Vital Signs Temp Pulse Pulse Resp BP BP Pulse Ox 09/14/18 12:37 66 09/14/18 12:09 36.4 C L 108 H 134/94 141/96 H 95 09/14/18 07:42 37.0 C 96 H 18 131/88 92 09/14/18 04:59 107 H 09/14/18 04:14 36.6 C 72 18 121/86 94 (1) Ascites Ascites type: due to alcoholic cirrhosis Qualified Code(s): K70.31 - Alcoholic cirrhosis of liver with ascites
--- NOTE | 2018-09-14 18:36 | Ultrasound Report ---
ULTRASOUND-GUIDED DIAGNOSTIC AND THERAPEUTIC PARACENTESIS: HISTORY: Ascites Procedure: The procedure and its risks, benefits and alternatives were discussed with the patient and written informed consent was obtained. Preliminary ultrasound of the abdomen was performed to determ ine a safe needle entry site. The right lower quadrant was prepped and draped in the usual sterile fashion. 1% Lidocaine was used f or local anesthesia. A paracentesis needle-sheath was inserted into the peritoneal space using ultras ound guidance. The needle was removed and the sheath was connected to tubing and a vacuum suction dev ice. A total of 4 liters of yellow ascites was aspirated. The sheath was removed and a sterile dressi ng applied. The patient tolerated the procedure well and there were no immediate complications. IMPRESSION: Ultrasound-guided therapeutic and diagnostic paracentesis with aspiration of 4 liters of ascites. 1 L was sent to the laboratory at the request of the referring physician. Electronically signed by: Angelo Drew M.D. 09/14/2018 6:27 PM
--- NOTE | 2018-09-14 18:44 | Ultrasound Report ---
BILATERAL LOWER EXTREMITY VENOUS DOPPLER HISTORY: Leg swelling. rule out DVT COMPARISON STUDY: None. FINDINGS: There is normal compressibility, flow, and augmentation within the bilateral lower extremit y deep venous systems. IMPRESSION: No DVT within the right or left lower extremity. Electronically signed by: Angelo Drew M.D. 09/14/2018 6:43 PM
[2018-09-14] MEDS: MAGNESIUM OXIDE 400 MG TAB PO SCH (19:43)
[2018-09-14 20:06] LABS: Appearance Peritoneal Fluid CLEAR; Color Peritoneal Fluid PALE YELLOW; RBC Peritoneal Fluid (A) < 3000 /uL; WBC Peritoneal Fluid (A) 64 /ul (0-300)
[2018-09-14 20:07] LABS: Mononuclear WBC Peritoneal 77.4 %; Polynuclear WBC Peritoneal 22.6 %
[2018-09-14 20:35] LABS: Albumin Peritoneal Fluid < 0.6 g/dl; LDH Peritoneal Fluid 37 U/L; Total Protein Peritoneal Fluid 0.6 g/dl
[2018-09-15] MEDS: cefTRIAXone SODIUM 2,000 MG in DEXTROSE 5% 50 ML IV SCH (02:19)
[2018-09-15 07:10] LABS: Hematocrit (blood only) 30.5 % (42-52); Hemoglobin 10.6 g/dL (14.0-18.0); Mean Corpuscular Hgb Conc 34.8 g/dL (32-36); Mean Corpuscular Volume 86.4 fL (80-100); RDW Coefficient of Variation 16.6 % (11.5-14.5); RDW Standard Deviation 52.7 fL (36.4-46.3); Red Blood Count 3.53 M/uL (4.7-6.1); White Blood Count 2.06 K/uL (4.8-10.8)
[2018-09-15 07:43] LABS: Albumin Level 2.2 gm/dl (3.4-5.0); BUN Creatinine Ratio 14.9 (10-20); Calcium 8.4 mg/dl (8.5-10.1); Creatinine Clr Calc Pharmacy 126.2 ml/min; Est GFR (African American) 127.8; Est GFR (Non-African American) 110.2; Magnesium 1.8 mg/dl (1.8-2.4); Potassium 3.4 mmol/L (3.5-5.1)
[2018-09-15 07:46] LABS: Albumin Globulin Ratio 0.6 (0.9-2); Bilirubin,Total 1.3 mg/dl (0.2-1); Globulin 3.7 gm/dl (2.5-4.0); Total Protein 5.9 gm/dl (6.4-8.2)
[2018-09-15 08:03] LABS: Mean Platelet Volume 9.2 fL (7.4-10.4); Platelet Count 72 K/uL (130-400)
[2018-09-15 08:04] LABS: Basophils # (auto) 0.01 K/uL (0-0.2); Basophils % (auto) 0.5 %; Echinocytes 1+; Eosinophils # (auto) 0.01 K/uL (0-0.5); Eosinophils % (auto) 0.5 %; Lymphocytes # (auto) 0.47 K/uL (1.2-3.4); Lymphocytes % (auto) 22.8 %; Monocytes # (auto) 0.35 K/uL (0.11-0.59); Neutrophils # (auto) 1.22 K/uL (1.4-6.5); Neutrophils % (auto) 59.2 %; Platelet Estimate Decreased (Normal)
[2018-09-15] MEDS: SPIRONOLACTONE 25 MG TAB PO SCH (08:33)
[2018-09-15] MEDS: MAGNESIUM OXIDE 400 MG TAB PO SCH ×2 (08:34→20:56)
[2018-09-15] MEDS: CEROVITE ADV FORMULA TAB PO SCH (08:34)
[2018-09-15] MEDS: THIAMINE HCL 100 MG TAB PO SCH (08:34)
[2018-09-15] MEDS ORDERED: FUROSEMIDE 20 MG TAB PO SCH (09:00)
--- NOTE | 2018-09-15 09:44 | Gastroenterology Progress Note ---
Date of Service September 15, 2018 Assessment & Plan (1) Ascites: 57 year old male with history of ETOH abuse, sober from ETOH since February 2018 admitted w/ lower extremity edema, abd distention. CT evidence of nodular appearing liver, large volume ascites. He does have chronic thrombocytopenia and elevated LFTs. S/P paracentesis w/o evidence of SBP. Ascites likely secondary to portal HTN given high SAAG w/ low total protein but additional fluid studies (cytology) are pending Elevated LFTS - MRCP negative - HUE, AMA, ASMA pending - Acute Hep panel pending Ascites/Edema - Diagnostic echo - Lower extremity duplex - Lasix 20 mg daily - Aldactone 50 mg daily - Repeat therapeutic paracentesis as needed - PLT > 60, INR < 1.6 - Check cell count, culture - Should have IV albumin 25% 25G before and after if more than 3L - Low NA diet, less than 2g Cirrhosis - MELD 12 - No ETOH - Low NA diet - Less than 2g tylenol if using - OP EGD - OP colonoscopy - Pending trend of MELD can consider referral for transplant evaluation GI to sign off. Thank you for allowing us to participate in the care of this patient. Please call with any acute changes, questions or concerns. Please see addendum below with additional recommendation from my supervising physician. Supervising Physician Co-Signing Physician Notes I performed a history and physical examination of the patient, including specifically on physical exam - soft, nontender abdomen. I have discussed the patient's management with Lulu. Please refer to the nurse practitioner's note for the documented findings and plan of care. Tap analysis no SBP Continue diuretics. Repeat another LVP prior to discharge. Follow up as OP in Liver clinic. Subjective pt was seen and evaluated, chart reviewed no acute events noted s/p paracentesis w/ 4 L off No SBP high SAAG w/ low total protein Less abd pain No nausea, vomiting Passed gas, no BM Denies black/bloody stools/emesis Decompensations Ascites: s/p para, lasix 20, aldactone 50 Varices: unknown HE: none Screening EGD: due HCC: February Immunization: unknown CT: Cirrhotic liver with sequela of portal hypertension including splenomegaly, abdominal varices, and a large amount of ascites.Small bilateral pleural effusions.Left-sided nephrolithiasis. No hydronephrosis.No definite bowel wall thickening or obstruction. Normal appendix.There is a 6.6 cm cystic lesion at the pancreatic tail. This favors a pseudocyst given the prior pancreatitis at this location.Cholelithiasis. EGD: none Colonoscopy: One 4 mm polyp in the ascending colon. Resected and retrieved.One 5 mm polyp in the rectum. Resected and retrieved. Diverticulosis in the sigmoid colon.The examined portion of the ileum was normal. The examination was otherwise normal on direct and retroflexion views. Review of Systems Constitutional: no fever and no body aches Respiratory: no cough and no dyspnea Cardiovascular: no chest pain, no radiating jaw, neck or arm pain and no palpitations Gastrointestinal: no abdominal pain, no early satiety, no vomiting, no diarrhea/loose stools, no fecal incontinence, no blood in stools and no melena Physical Exam Constitutional: + cachectic Respiratory: normal respiratory effort, lungs clear to auscultation Cardiovascular: RRR, no murmur, no edema Gastrointestinal (Abdomen): normal bowel sounds, soft, nontender, no hepatosplenomegaly Skin: no rashes, warm and dry Results & Data Vital Signs (Past 12 Hours) Vital Signs Temp Pulse Pulse Resp BP BP Pulse Ox 09/15/18 07:00 36.8 C 90 16 111/74 96 09/15/18 03:23 36.9 C 92 H 16 91/60 L 93 09/15/18 01:37 98 H 09/14/18 22:52 36.7 C 94 H 16 109/74 97 (1) Ascites Ascites type: due to alcoholic cirrhosis Qualified Code(s): K70.31 - Alcoholic cirrhosis of liver with ascites
[2018-09-15] MEDS: FOLIC ACID 1 MG TAB PO SCH (10:08)
[2018-09-15] MEDS ORDERED: FUROSEMIDE 40 MG in SYRINGE 0 ML IV ONE (16:10)
--- NOTE | 2018-09-15 16:14 | Hospitalist Progress Note ---
Date of Service September 15, 2018 Assessment & Plan (1) Ascites: Cirrhosis -ascites x 2 weeks due to liver cirrhosis as new diagnosis -given history of alcoholism, last drink reported by patient as February 2018 -admission CT abdomen: Cirrhotic liver with sequela of portal hypertension including splenomegaly, abdominal varices, and a large amount of ascites. -paracentesis completed on 09/14/18 and 4 liters of fluid removed and no evidence of Spontaneous bacterial peritonitis -stop the empiric ceftriaxone as there is no evidence of Spontaneous bacterial peritonitis based on peritoneal fluid analysis; no malignant cells in peritoneal fluid cytology -patient tolerated tolerated oral lasix 20 mg and oral spirolactone during day time of 09/15/18. will give IV 40 mg Lasix in evening, and plan diuretic as IV lasix 40 mg daily and oral spirolactone starting on 09/16/18 -Low NA diet, less than 2g -monitor fluid status, including the abdomen distention and left lower extremity edema - left lower extremity edema is from fluid overload from cirrohosis as echocardiogram with normal ejection fraction and no DVTs were identified on lower extremity ultrasound Splenomegaly -seen on MRCP on 09/14/18 -No evidence of bile ductal dilatation on MRCP Pancreatic pseudocyst -6 cm cystic pancreatic mass containing debris. This likely represents a pseudocyst. seen on MRCP on 09/14/18 Transaminitis - gastroenterology service sent HUE, AMA, ASMA, Acute Hep panels; results pending Hypoalbumineria -admission serum albumin 1.9 -patient had albumin before and after the paracentesis on 09/15/18 -health assistant consult Pancytopenia -anemia and thrombocytopenia -admission white blood cells of 3.4, hemoglobin of 12.4 and platelets of 114, most likely from liver cirrhosis -continue to trend Folic acid deficiency -deficient on admission labs -give folic acid daily Alcoholism in the past -ativan prn if needed in case of ETOH withdrawal -folic acid -multivitamins and thiamine Hyponatremia -admission serum sodium 132 -has imporved to 137 Hypokalemia -admission serum potassium 2.6 -was repleted and now is 3.4; start daily oral potassium supplements Hypomagnesemia -serum magnesium rising from 1.6 to 1.8, continue daily magnesium supplements DVT ppx: start SCDs once ultrasound of lower extremities rule out DVT Full Code Subjective Patient tolerated oral lasix 20 mg and oral spirolactone during day time. still very distended abdomen and left lower extremity swelling. No acute respiratory distress. breathing on room air. no chets pain. no vomiting. no headache. no dizziness Physical Exam Eyes: PERRL, conjunctivae normal, anicteric sclerae EOM intact bilaterally ENMT: external ear and nose normal, oropharynx normal Neck: trachea midline, no thyromegaly normal visual inspection Respiratory: normal respiratory effort, lungs clear to auscultation Cardiovascular: Rate/Rhythm: regular rate and regular rhythm Gastrointestinal (Abdomen): Inspection/Auscultation: + abdomen distended (caput medusae) and normal bowel sounds Musculoskeletal: Head/Neck/Chest: normocephalic and head atraumatic Extremities: + lower leg abnormality (left lower extremity swelling) Neurologic: PERRL, EOMI, accommodation nl, no face palsy, no dysarthria CN's II-XI intact bilaterally Psychiatric: A+Ox3, euthymic affect Results & Data Vital Signs (Past 12 Hours) Vital Signs Temp Pulse Pulse Resp BP BP Pulse Ox 09/15/18 15:00 36.7 C 93 H 18 112/79 94 09/15/18 11:25 36.8 C 90 18 104/71 98 09/15/18 08:00 91 H 09/15/18 07:00 36.8 C 90 16 111/74 96 (1) Ascites Ascites type: due to alcoholic cirrhosis Qualified Code(s): K70.31 - Alcoholic cirrhosis of liver with ascites
[2018-09-15] MEDS: POTASSIUM CHLORIDE 10 MEQ TABCR PO SCH (17:33)
[2018-09-15] MEDS: HYDROmorphone INJ 0.5 MG/0.5 ML SYR IV PRN (21:42)
[2018-09-16 05:38] LABS: Hematocrit (blood only) 33.3 % (42-52); Hemoglobin 11.2 g/dL (14.0-18.0); Mean Corpuscular Hgb Conc 33.6 g/dL (32-36); Mean Corpuscular Volume 87.6 fL (80-100); RDW Coefficient of Variation 16.4 % (11.5-14.5); RDW Standard Deviation 52.7 fL (36.4-46.3); White Blood Count 2.39 K/uL (4.8-10.8)
[2018-09-16 05:50] LABS: Mean Platelet Volume 8.9 fL (7.4-10.4); Platelet Count 79 K/uL (130-400)
[2018-09-16 06:02] LABS: Basophils # (auto) 0.01 K/uL (0-0.2); Basophils % (auto) 0.4 %; Eosinophils # (auto) 0.03 K/uL (0-0.5); Eosinophils % (auto) 1.3 %; Lymphocytes # (auto) 0.62 K/uL (1.2-3.4); Lymphocytes % (auto) 25.9 %; Monocytes # (auto) 0.35 K/uL (0.11-0.59); Monocytes % (auto) 14.6 %; Neutrophils # (auto) 1.38 K/uL (1.4-6.5); Neutrophils % (auto) 57.8 %
[2018-09-16 06:05] LABS: Albumin Level 2.3 gm/dl (3.4-5.0); BUN Creatinine Ratio 14.1 (10-20); Calcium 7.9 mg/dl (8.5-10.1); Creatinine Clr Calc Pharmacy 98.5 ml/min; Est GFR (African American) 115.4; Est GFR (Non-African American) 99.6; Magnesium 1.8 mg/dl (1.8-2.4); Potassium 3.1 mmol/L (3.5-5.1)
[2018-09-16 06:07] LABS: Albumin Globulin Ratio 0.6 (0.9-2); Bilirubin,Total 1.7 mg/dl (0.2-1); Total Protein 6.3 gm/dl (6.4-8.2)
[2018-09-16] MEDS: MAGNESIUM OXIDE 400 MG TAB PO SCH ×2 (08:35→21:04)
[2018-09-16] MEDS: FOLIC ACID 1 MG TAB PO SCH (08:36)
[2018-09-16] MEDS: SPIRONOLACTONE 25 MG TAB PO SCH (08:36)
[2018-09-16] MEDS: FUROSEMIDE 40 MG in SYRINGE 0 ML IV SCH (08:36)
[2018-09-16] MEDS: THIAMINE HCL 100 MG TAB PO SCH (08:37)
[2018-09-16] MEDS: POTASSIUM CHLORIDE 10 MEQ TABCR PO SCH (08:37)
[2018-09-16] MEDS: CEROVITE ADV FORMULA TAB PO SCH (08:37)
[2018-09-16] MEDS ORDERED: POTASSIUM CHLORIDE 10 MEQ TABCR PO STA (14:40)
--- NOTE | 2018-09-16 15:20 | Hospitalist Progress Note ---
Date of Service September 16, 2018 Assessment & Plan (1) Ascites: Cirrhosis - repeat paracentesis ordered continue Lasix IV, Spironolactone Splenomegaly -seen on MRCP on 09/14/18 -No evidence of bile ductal dilatation on MRCP Pancreatic pseudocyst -6 cm cystic pancreatic mass containing debris. This likely represents a pseudocyst. seen on MRCP on 09/14/18 Transaminitis - gastroenterology service sent HUE, AMA, ASMA, Acute Hep panels; results pending Hypoalbumineria -rn liaison consult Pancytopenia -anemia and thrombocytopenia -admission white blood cells of 3.4, hemoglobin of 12.4 and platelets of 114, most likely from liver cirrhosis -stable Folic acid deficiency -deficient on admission labs -give folic acid daily Alcoholism in the past -ativan prn if needed in case of ETOH withdrawal -folic acid -multivitamins and thiamine Hyponatremia -admission serum sodium 132 improved Hypokalemia -being repleted Hypomagnesemia -serum magnesium rising from 1.6 to 1.8, continue daily magnesium supplements DVT ppx: start SCDs once ultrasound of lower extremities rule out DVT Full Code Disposition pending Subjective ff up for ascites, liver cirrhosis seen resting in bed, comfortable still has abdominal distention denies shortness of breath, abdominal pain no other symptoms Review of Systems Review of Systems: All systems reviewed & are unremarkable except as noted in HPI & below Physical Exam Physical Exam: General- oriented x 3, not in distress, speaks in sentences with no effort or accessory muscle use Head- atraumatic Eyes- PERRL, EOMI, anicteric ENT- oropharynx clear Neck- supple, no JVD, no adenopathy, no thyromegaly; carotids +2/2, no bruits appreciated Lungs- clear to auscultation bilaterally, no rales/wheezes Heart- normal rate, regular rhythm; no murmur, no gallop, no rub appreciated Abdomen- normal bowel sounds, (+) moderate distention, soft, nontender, no masses or hepatosplenomegaly Extremities- Left lower leg- mild edema, no calf tenderness; peripheral pulses intact Neuro- alert, oriented x 3; CN 2-12 grossly intact; motor 5/5 bilaterally;sensation 100% on all extremities; no other gross focal neurologic deficits Skin- warm & dry Results & Data Vital Signs (Past 12 Hours) Vital Signs Temp Pulse Pulse Resp BP BP Pulse Ox 09/16/18 15:02 36.5 C 95 H 21 115/75 97 09/16/18 11:21 36.5 C 100 H 18 113/78 97 09/16/18 07:22 37.2 C 76 20 112/74 97 09/16/18 07:00 96 H 09/16/18 04:19 36.8 C 97 H 18 121/84 95 (1) Ascites Ascites type: due to alcoholic cirrhosis Qualified Code(s): K70.31 - Alcoholic cirrhosis of liver with ascites
[2018-09-16] MEDS: HYDROmorphone INJ 0.5 MG/0.5 ML SYR IV PRN ×2 (15:50→23:50)
[2018-09-16] MEDS: ALBUMIN 25% 50 ML IV SCH ×2 (20:57→20:58)
[2018-09-17] MEDS: SPIRONOLACTONE 25 MG TAB PO SCH (08:37)
[2018-09-17] MEDS: FOLIC ACID 1 MG TAB PO SCH (08:38)
[2018-09-17] MEDS: POTASSIUM CHLORIDE 10 MEQ TABCR PO SCH (08:38)
[2018-09-17] MEDS: FUROSEMIDE 40 MG in SYRINGE 0 ML IV SCH (08:39)
[2018-09-17] MEDS: MAGNESIUM OXIDE 400 MG TAB PO SCH ×2 (08:39→19:55)
[2018-09-17] MEDS: THIAMINE HCL 100 MG TAB PO SCH (08:40)
[2018-09-17] MEDS: CEROVITE ADV FORMULA TAB PO SCH (08:40)
[2018-09-17] MEDS: ALBUMIN 25% 50 ML IV SCH ×2 (10:17→14:22)
--- NOTE | 2018-09-17 14:07 | Ultrasound Report ---
US paracentesis abd w/image CLINICAL HISTORY: 57 years-old Male presenting with ascites. COMPARISON: 09/14/2018. PROCEDURE: The procedure and its risks, benefits, and alternatives were discussed with the patient, and written informed consent was obtained. A timeout was performed to confirm patient identity. Limited ultrasound of the abdomen was performed to determine a safe needle entry site, and the site w as marker for paracentesis. The left lower quadrant was prepped and draped in the usual aseptic fashion. 1% Lidocaine was used fo r local anesthesia. A paracentesis needle-sheath was inserted into the peritoneal space using ultrasound guidance. The ne edle was removed and the sheath was connected to tubing and a vacuum suction device. A total of 4 L o f clear yellow ascites was aspirated. The sheath was removed, and a dressing applied. The patient tolerated the procedure well. No immediate complications. IMPRESSION: Ultrasound-guided diagnostic and therapeutic paracentesis with aspiration of 4 L of ascites. Electronically signed by: Nitin Burgess M.D. 09/17/2018 2:06 PM
[2018-09-17 16:09] LABS: Appearance Peritoneal Fluid CLEAR; Color Peritoneal Fluid STRAW; Mononuclear WBC Peritoneal 88.3 %; Polynuclear WBC Peritoneal 11.7 %; RBC Peritoneal Fluid (A) < 3000 /uL; WBC Peritoneal Fluid (A) 69 /ul (0-300)
[2018-09-17] MEDS: HYDROmorphone INJ 0.5 MG/0.5 ML SYR IV PRN ×2 (16:31→22:46)
[2018-09-17 18:40] LABS: BUN Creatinine Ratio 18.3 (10-20); Calcium 9.1 mg/dl (8.5-10.1); Creatinine Clr Calc Pharmacy 109.1 ml/min; Est GFR (African American) 120.4; Est GFR (Non-African American) 103.8; Potassium 3.8 mmol/L (3.5-5.1)
[2018-09-17] MEDS ORDERED: SPIRONOLACTONE 25 MG TAB PO ONE (18:44)
[2018-09-18] MEDS ORDERED: SPIRONOLACTONE 100 MG TAB PO SCH (09:00)
[2018-09-18 09:04] LABS: Hematocrit (blood only) 27.9 % (42-52); Hemoglobin 9.8 g/dL (14.0-18.0); Mean Corpuscular Hgb Conc 35.1 g/dL (32-36); Mean Corpuscular Volume 86.9 fL (80-100); RDW Standard Deviation 51.1 fL (36.4-46.3); Red Blood Count 3.21 M/uL (4.7-6.1)
--- NOTE | 2018-09-18 09:07 | Hospitalist Progress Note ---
Date of Service delayed entry date of service 09/17/18 September 18, 2018 Assessment & Plan (1) Ascites: Cirrhosis - s/p 2 paracentesis total of 8 L drained BP on the lower side, but asymptomatic continue Lasix IV, Spironolactone increased to 100mg daily Splenomegaly -seen on MRCP on 09/14/18 -No evidence of bile ductal dilatation on MRCP Pancreatic pseudocyst -6 cm cystic pancreatic mass containing debris. This likely represents a pseudocyst. seen on MRCP on 09/14/18 Transaminitis - gastroenterology service sent HUE, AMA, ASMA, Acute Hep panels; results pending Hypoalbumineria -instructional writer consult Pancytopenia -anemia and thrombocytopenia -admission white blood cells of 3.4, hemoglobin of 12.4 and platelets of 114, most likely from liver cirrhosis -stable Folic acid deficiency -deficient on admission labs -give folic acid daily Alcoholism in the past -ativan prn if needed in case of ETOH withdrawal -folic acid -multivitamins and thiamine Hyponatremia -admission serum sodium 132 improved Hypokalemia -being repleted Hypomagnesemia -serum magnesium rising from 1.6 to 1.8, continue daily magnesium supplements DVT ppx: start SCDs once ultrasound of lower extremities rule out DVT Full Code Disposition pending Subjective ff up for ascites, liver cirrhosis s/p paracentesis resting, comfortable in good spirits states he feels fine overall denies dizziness, abdominal pain, nausea (+) BMs no other symptoms Review of Systems Review of Systems: All systems reviewed & are unremarkable except as noted in HPI & below Physical Exam Physical Exam: General- oriented x 3, not in distress, speaks in sentences with no effort or accessory muscle use Eyes- anicteric Neck- no JVD Lungs- clear breath sounds bilaterally, no rales/wheezes Heart- normal rate, regular rhythm; no murmurs Abdomen- normal bowel sounds, mildly distended, soft, nontender Extremities-left leg edema, no calf tenderness Neuro- alert, oriented x 3; no gross focal neurologic deficits Skin- warm & dry Results & Data Vital Signs (Past 12 Hours) Vital Signs Temp Pulse Resp BP BP Pulse Ox 09/18/18 07:14 36.9 C 86 20 94/63 L 94 09/18/18 04:15 37.0 C 86 19 104/70 96 05/23/19 23:14 37 C 103 H 18 98/64 L 93 (1) Ascites Ascites type: due to alcoholic cirrhosis Qualified Code(s): K70.31 - Alcoholic cirrhosis of liver with ascites
[2018-09-18 09:15] LABS: Mean Platelet Volume 9.2 fL (7.4-10.4); Platelet Count 63 K/uL (130-400)
--- NOTE | 2018-09-18 09:28 | Gastroenterology Progress Note ---
Date of Service September 18, 2018 Assessment & Plan (1) Ascites: 57 year old male with history of ETOH abuse, sober from ETOH since February 2018 admitted w/ lower extremity edema, abd distention. CT evidence of nodular appearing liver, large volume ascites. He does have chronic thrombocytopenia and elevated LFTs. S/P paracentesis w/o evidence of SBP. Ascites likely secondary to portal HTN given high SAAG w/ low total protein, cytology negative. S/P repeat paracentesis w/ additional 4L off. Edema slowly improving. Clinically feeling well. AM labs are pending. Will need OP GI follow up within the month. He notes he may have travel restriction and would prefer to try to follow in [place] Elevated LFTS - MRCP negative - HUE, AMA, ASMA pending - Acute Hep panel negative to date Ascites/Edema - Diagnostic echo - Lower extremity duplex - Lasix 40 mg daily - Aldactone 100 mg daily - Repeat therapeutic paracentesis as needed - PLT > 60, INR < 1.6 - Check cell count, culture - Should have IV albumin 25% 25G before and after if more than 3L - Low NA diet, less than 2g Cirrhosis - MELD 12 - No ETOH - Low NA diet - Less than 2g tylenol if using - OP EGD - OP colonoscopy - Pending trend of MELD can consider referral for transplant evaluation GI to sign off. No GI contraindication to D/C home pending labs. Thank you for allowing us to participate in the care of this patient. Please call with any acute changes, questions or concerns. Please see addendum below with additional recommendation from my supervising physician. Supervising Physician Co-Signing Physician Notes I saw and evaluated the patient. He has a history of alcohol abuse and presented with new onset ascites. Physical examination No obvious distress Abdominal tenderness, mild abdominal distention Impression: Patient with cirrhosis likely related to alcoholic liver disease. Would recommend continued abstinence and perhaps the patient should be considered rehabilitation. Would also suggest continued use of diuretics on Lasix and Aldactone as you are doing. He should be instructed on a low-sodium diet per nutrition. Patient will follow with the gastroenterology office in 6 to 8 weeks or sooner if needed. Subjective pt was seen and evaluated, chart reviewed no acute events noted GI asked to re- evalaute the pt prior to discharge home s/p repeat paracentesis w/ additional 4 L offNo SBPhigh SAAG w/ low total proteinLess abd painNo nausea, vomiting Passed gas, passing stool Denies black/bloody stools/emesis Plan for D/C home Diagnosis: suspected ETOH, serology was ordered at [place] but still pending Decompensations Ascites: s/p para x 2 w/ total 8L off, lasix 40, aldactone 100 Varices: unknown HE: none Screening EGD: due HCC: February Immunization: unknown CT: Cirrhotic liver with sequela of portal hypertension including splenomegaly, abdominal varices, and a large amount of ascites.Small bilateral pleural effusions.Left-sided nephrolithiasis. No hydronephrosis.No definite bowel wall thickening or obstruction. Normal appendix.There is a 6.6 cm cystic lesion at the pancreatic tail. This favors a pseudocyst given the prior pancreatitis at this location.Cholelithiasis. EGD: none Colonoscopy: One 4 mm polyp in the ascending colon. Resected and retrieved.One 5 mm polyp in the rectum. Resected and retrieved. Diverticulosis in the sigmoid colon.The examined portion of the ileum was normal. The examination was otherwise normal on direct and retroflexion views. Review of Systems Constitutional: no fever, no body aches and no weakness Respiratory: no cough, no dyspnea and no wheezing Cardiovascular: no chest pain, no radiating jaw, neck or arm pain, no dyspnea on exertion and no palpitations Gastrointestinal: no abdominal pain, no early satiety, no vomiting and no melena Physical Exam Constitutional: + thin and + cachectic Respiratory: normal respiratory effort, lungs clear to auscultation Cardiovascular: RRR, no murmur, no edema Rate/Rhythm: regular rate and regular rhythm Extremities: + edema Gastrointestinal (Abdomen): Inspection/Auscultation: normal bowel sounds Percussion/Palpation: + ascites (mild abd distention); no guarding and abdomen not rigid Skin: no rashes, warm and dry Psychiatric: Orientation: alert and oriented x 3 Results & Data Vital Signs (Past 12 Hours) Vital Signs Temp Pulse Resp BP BP Pulse Ox 09/18/18 07:14 36.9 C 86 20 94/63 L 94 09/18/18 04:15 37.0 C 86 19 104/70 96 09/17/18 23:14 37 C 103 H 18 98/64 L 93 Laboratory Results 09/18/18 09/18/18 09/17/18 Range/Units 08:52 08:52 Unknown WBC 3.00 L (4.8-10.8) K/uL RBC 3.21 L (4.7-6.1) M/uL Hgb 9.8 L (14.0-18.0) g/dL Hct 27.9 L (42-52) % MCV 86.9 (80-100) fL MCH 30.5 (25-34) pg MCHC 35.1 (32-36) g/dL RDW Std Deviation 51.1 H (36.4-46.3) fL RDW Coeff of Kacie 16.0 H (11.5-14.5) % Plt Count 63 L (130-400) K/uL MPV 9.2 (7.4-10.4) fL Sodium Pending (136-145) mmol/L Potassium Pending (3.5-5.1) mmol/L Chloride Pending (98-107) mmol/L Carbon Dioxide Pending (21-32) mmol/L Anion Gap Pending (3-11) BUN Pending (7-18) mg/dl Creatinine Pending (0.6-1.4) mg/dl Est Cr Clr Drug Dosing Pending ml/min Est GFR ( Amer) Pending Est GFR (Non-Af Amer) Pending BUN/Creatinine Ratio Pending (10-20) Glucose Pending (70-99) mg/dl Calcium Pending (8.5-10.1) mg/dl Peritoneal Color STRAW Peritoneal Appearance CLEAR Peritoneal WBC 69 (0-300) /ul Peritoneal RBC < 3000 /uL Mononuclear WBCs % 88.3 % Polynuclear WBCs % 11.7 % 09/17/18 Range/Units 17:57 WBC (4.8-10.8) K/uL RBC (4.7-6.1) M/uL Hgb (14.0-18.0) g/dL Hct (42-52) % MCV (80-100) fL MCH (25-34) pg MCHC (32-36) g/dL RDW Std Deviation (36.4-46.3) fL RDW Coeff of Kacie (11.5-14.5) % Plt Count (130-400) K/uL MPV (7.4-10.4) fL Sodium 136 (136-145) mmol/L Potassium 3.8 D (3.5-5.1) mmol/L Chloride 100 (98-107) mmol/L Carbon Dioxide 30 (21-32) mmol/L Anion Gap 6.0 (3-11) BUN 14 (7-18) mg/dl Creatinine 0.74 (0.6-1.4) mg/dl Est Cr Clr Drug Dosing 109.1 ml/min Est GFR ( Amer) 120.4 Est GFR (Non-Af Amer) 103.8 BUN/Creatinine Ratio 18.3 (10-20) Glucose 91 (70-99) mg/dl Calcium 9.1 D (8.5-10.1) mg/dl Peritoneal Color Peritoneal Appearance Peritoneal WBC (0-300) /ul Peritoneal RBC /uL Mononuclear WBCs % % Polynuclear WBCs % % (1) Ascites Ascites type: due to alcoholic cirrhosis Qualified Code(s): K70.31 - Alcoholic cirrhosis of liver with ascites
[2018-09-18 09:32] LABS: Basophils # (auto) 0.01 K/uL (0-0.2); Basophils % (auto) 0.3 %; Eosinophils # (auto) 0.05 K/uL (0-0.5); Eosinophils % (auto) 1.7 %; Lymphocytes # (auto) 0.37 K/uL (1.2-3.4); Lymphocytes % (auto) 12.3 %; Monocytes # (auto) 0.41 K/uL (0.11-0.59); Monocytes % (auto) 13.7 %; Neutrophils # (auto) 2.16 K/uL (1.4-6.5)
[2018-09-18] MEDS: POTASSIUM CHLORIDE 10 MEQ TABCR PO SCH (09:33)
[2018-09-18] MEDS: FOLIC ACID 1 MG TAB PO SCH (09:33)
[2018-09-18] MEDS: THIAMINE HCL 100 MG TAB PO SCH (09:33)
[2018-09-18] MEDS: CEROVITE ADV FORMULA TAB PO SCH (09:33)
[2018-09-18] MEDS: FUROSEMIDE 40 MG in SYRINGE 0 ML IV SCH (09:33)
[2018-09-18] MEDS: MAGNESIUM OXIDE 400 MG TAB PO SCH (09:33)
[2018-09-18 09:36] LABS: BUN Creatinine Ratio 21.6 (10-20); Calcium 8.1 mg/dl (8.5-10.1); Creatinine Clr Calc Pharmacy 109.5 ml/min; Est GFR (African American) 121.7; Potassium 3.6 mmol/L (3.5-5.1)
--- NOTE | 2018-09-18 16:08 | Discharge Summary ---
Date of Service September 18, 2018 Admission HPI Per Admitting Provider CHIEF COMPLAINT: Distended abdomen. HISTORY OF PRESENT ILLNESS: This patient is a 57-year-old male with past medical history significant for alcoholism and necrotizing pancreatitis who was admitted to [facility] in 07/2015. At that time, he had alcoholic hepatitis, aspiration pneumonitis and necrotizing pancreatitis with alcohol withdrawal and prolonged stay in the hospital, was confused for many days and later he improved and got discharged home. He had a followup with Gastroenterology at that time and had colonoscopy which showed a polyp and was recommended to repeat colonoscopy in 3 years and he seems to be not following with doctors. He states that he quit alcohol in 02/2018. He is not drinking since then. He lives alone. Since last couple of weeks, his abdomen is getting distended and it got worse and worse and now he is very tense and also developed some abdominal discomfort in the left lower quadrant and is taking ibuprofen for his pain. He was not getting better, so he came to the Emergency Room. Imaging studies in the Emergency Room showed cirrhotic liver with portal hypertension including splenomegaly, abdominal varices and a large amount of ascites, small bilateral pleural effusions, 6.6 cm cystic lesion of the pancreatic tail, this favors pseudocyst and cholelithiasis. The patient is afebrile. Hemodynamics are stable. Denies any chest pain. No shortness of breath. No cough. No fever. No headaches. No dizziness. No blurred vision. No earache. No sore throat. No difficulty swallowing. Appetite is good. Currently, feeling hungry and wants to eat. He states he moved his bowels, but no black stools or blood in the stools. Normal bladder movements. He states once in a while he gets some burning micturition. No hematuria. He has swelling in the legs. ALLERGIES: No known drug allergies. PAST MEDICAL HISTORY: As mentioned above. PAST SURGICAL HISTORY: Colonoscopy, laparoscopic inguinal hernia repair and eye surgery. MEDICATIONS: He is currently taking only ibuprofen as needed and multivitamins. FAMILY HISTORY: Significant for mother had lung cancer. Father had a stroke and hypertension. Sister has Parkinson's. Brother has coronary artery disease. SOCIAL HISTORY: He is currently living alone. He quit alcohol in 02/2018. No drug use. REVIEW OF SYMPTOMS: As per HPI. Rest of review of systems negative. Admission Exam Per Admitting Provider PHYSICAL EXAMINATION: GENERAL: The patient is thin and frail, not in acute distress. VITAL SIGNS: Temperature 36.9, pulse 90, respiratory rate 22, blood pressure 128/82 and oxygen 96% on room air. HEENT: No pallor. No icterus. Pupils are equal, round and reactive to light. NECK: No JVD. No neck mass. No carotid bruit. CARDIOVASCULAR: S1, S2 heard. Regular rate and rhythm. No murmur. No gallop. RESPIRATORY SYSTEM: Normal AP diameter. No accessory muscle use. No wheezing. No crackles. ABDOMEN: Tense distention. Mild left lower quadrant tenderness. No guarding. CENTRAL NERVOUS SYSTEM: Cranial nerves II through XII are grossly intact. Nonfocal. EXTREMITIES: Lower extremity edema present. Principal Diagnosis LIVER CIRRHOSIS WITH ASCITES Discharge Exam General- oriented x 3, not in distress, speaks in sentences with no effort or accessory muscle use Eyes- anicteric Neck- no JVD Lungs- clear breath sounds bilaterally, no rales/wheezes Heart- normal rate, regular rhythm; no murmurs Abdomen- normal bowel sounds, mildly distended, soft, nontender Extremities-left leg edema, no calf tenderness Neuro- alert, oriented x 3; no gross focal neurologic deficits Skin- warm & dry Discharge Data Allergies Allergy/AdvReac Type Severity Reaction Status Date / Time No Known Allergies Allergy Unverified 08/11/15 15:39 Consultations 09/13/18 21:34 ED Decision to Admit Stat 09/14/18 01:01 Consult Case Management - Discharge Planning Routine 09/14/18 08:00 Consult Gastroenterology Routine 09/15/18 07:31 Consult Case Management - Discharge Planning Routine Ordered Studies 09/13/18 19:04 CT abd pelvis IV con only Stat ABDOMEN AND PELVIS CT WITH IV CONTRAST CT DOSE: 752.15 mGy.cm HISTORY: Abdominal distention. TECHNIQUE: Multiaxial CT images of the abdomen and pelvis were performed following the use of intravenous contrast. A dose lowering technique was utilized adhering to the principles of ALARA. COMPARISON STUDY: Abdomen and pelvis CT 08/23/2015. FINDINGS: Small bilateral pleural effusions. Bibasilar densities favor subsegmental atelectasis. No pneumatosis. No pneumoperitoneum. Old, healed bilateral rib fractures. Small distal periesophageal varices. Heterogeneous and nodular liver consistent with cirrhosis. No hepatic masses identified. The portal vein is patent. The spleen is mildly enlarged. The splenic vein is also patent. Small periumbilical varices are also noted. Normal bladder. Mild body wall edema. The adrenal glands are unremarkable. The kidneys enhance normally. No hydronephrosis. There is a 3 mm stone within the left renal pelvis. No retroperitoneal lymphadenopathy. Normal caliber abdominal aorta. A few punctate stones within the gallbladder fundus. No gallbladder wall thickening. Large amount of ascites. A few colonic diverticula. No evidence for diverticulitis. No bowel wall thickening or obstruction. Questionable thickening within the proximal to mid colon is likely due to venous congestion from the patient's cirrhosis. Normal appendix. There is a 6.6 cm cystic lesion at the pancreatic tail. This favors a pseudocyst given the prior pancreatitis at this location. IMPRESSION: 1. Cirrhotic liver with sequela of portal hypertension including splenomegaly, abdominal varices, and a large amount of ascites. 2. Small bilateral pleural effusions. 3. Left-sided nephrolithiasis. No hydronephrosis. 4. No definite bowel wall thickening or obstruction. Normal appendix. 5. There is a 6.6 cm cystic lesion at the pancreatic tail. This favors a pseudocyst given the prior pancreatitis at this location. 6. Cholelithiasis. 09/14/18 10:34 MR MRCP Routine MR MRCP CLINICAL HISTORY: gallstones, elevated LFTs, cirrhosis, hx nec pancreatitis COMPARISON STUDY: CT scan dated 09/13/2018 FINDINGS: A breath-hold MRCP was performed. MIP images were acquired. There is a large volume of ascites. The liver has a cirrhotic morphology. The spleen is enlarged measuring 13.5 cm. There is a 6 cm cystic pancreatic mass, possibly representing a pseudocyst. This contains a small amount of debris. No gallstones are visualized. There is no ductal dilatation. There are no filling defects to indicate common bile duct calculi. The examination is limited from a technical standpoint due to the large volume of ascites. IMPRESSION: 1. Moderately limited study from a technical standpoint due to the patient's l arge volume of ascites 2. Cirrhotic morphology of the liver. 3. Splenomegaly. 4. No evidence of ductal dilatation. No ductal filling defects identified 5. 6 cm cystic pancreatic mass containing debris. This likely represents a pseudocyst. 09/14/18 12:25 US venous doppler LE BI Stat BILATERAL LOWER EXTREMITY VENOUS DOPPLER HISTORY: Leg swelling. rule out DVT COMPARISON STUDY: None. FINDINGS: There is normal compressibility, flow, and augmentation within the bilateral lower extremity deep venous systems. IMPRESSION: No DVT within the right or left lower extremity. 09/14/18 12:30 US paracentesis abd w/image Routine MPRESSION: Ultrasound-guided therapeutic and diagnostic paracentesis with aspiration of 4 liters of ascites. 1 L was sent to the laboratory at the request of the valdo galvan physician. 09/17/18 00:00 US paracentesis abd w/image Routine IMPRESSION: Ultrasound-guided diagnostic and therapeutic paracentesis with aspiration of 4 L of ascites. Hospital Course (1) Ascites: secondary to Liver Cirrhosis -ascites x 2 weeks due to liver cirrhosis as new diagnosis -given history of alcoholism, last drink reported by patient as February 2018 -admission CT abdomen: Cirrhotic liver with sequela of portal hypertension including splenomegaly, abdominal varices, and a large amount of ascites. - GI consulted - s/p 2 paracentesis total of 8 L drained BP on the lower side, but asymptomatic given Lasix and Spironolactone - discharge on Lasix 40mg po daily and Spironolactone 100mg po daily as per GI - PRN therapeutic paracentesis - per GI: - MELD 12 - No ETOH - Low NA diet - Less than 2g tylenol if using - OP EGD - OP colonoscopy - Pending trend of MELD can consider referral for transplant evaluation ff up with GI in 1-2 weeks Splenomegaly -seen on MRCP on 09/14/18 -No evidence of bile ductal dilatation on MRCP Pancreatic pseudocyst -6 cm cystic pancreatic mass containing debris. This likely represents a pseudocyst. seen on MRCP on 09/14/18 Transaminitis - gastroenterology service sent HUE, AMA, ASMA, Acute Hep panels; results pending Hypoalbumineria -loss prevention officer consulted Pancytopenia -anemia and thrombocytopenia -admission white blood cells of 3.4, hemoglobin of 12.4 and platelets of 114, most likely from liver cirrhosis -stable ff up as outpatient Folic acid deficiency -deficient on admission labs -give folic acid daily Alcoholism in the past -ativan prn ordered -folic acid -multivitamins and thiamine -no signs of overt withdrawal Hyponatremia -admission serum sodium 132 improved to 135 Hypokalemia - resolved given K supplement 20meq/day monitor K and Mg levels as outpatient in light of starting Lasix + Aldactone Hypomagnesemia -continue daily magnesium supplements Disposition d/c home ff up with PCP 09/23 ff up with GI in 1-2 weeks Total Time Total Time Spent Total Time Spent (In Minutes): 45 minutes Discharge Plan Discharge Items Patient Disposition: Home - Self-Care Reason For Visit: ABDOMINAL DISTENSION Discharge Diagnosis: LIVER CIRRHOSIS WITH ASCITES Discharge Goals: Diagnostic testing Activity: As commented below Activity Comment: NO HEAVY EXERTION UNTIL RE-EVALUATED BY PRIMARY CARE PHYSICIAN Lifting: Wait until after follow-up appointment Exercise/Sports: Wait until after follow-up appointment Driving/Machine Use Comment: NO DRIVING Non-emergency contact: Primary Care Provider Call non-emergency contact if: you have any medication questions, your symptoms worsen, your pain is not controlled, your pain is worsening, your pain is concerning for you, you have a fever, your wound has increased redness, your wound has increased drainage and your wound pain has increased Follow-up/Referrals: PCP,NO [Primary Care Provider] - Diet: Heart Healthy and Low Sodium (2gm) Addtl Provider Instructions: FOLLOW UP WITH [facility] PRIMARY CARE PHYSICIAN AT [facility] OFFICE ON Friday09/23/18 AT 10:[address] RICO BARON. FOLLOW UP WITH [facility] IN 1-2 WEEKS. PLEASE CALL THEIR OFFICE FOR AN APPOINTMENT. TEL NO. . PLEASE REVIEW YOUR NEW MEDICATION LIST AND FOLLOW INSTRUCTIONS CAREFULLY. CALL PRIMARY CARE PHYSICIAN OR RETURN TO THE ER IMMEDIATELY IF WITH RECURRENCE/WORSENING OF SYMPTOMS, INCREASING ABDOMINAL DISTENSION, ABDOMINAL PAIN, NAUSEA/VOMITING, BLACK OR BLOOD IN THE STOOLS, FEVER/CHILLS, WEAKNESS, CHANGES WITH URINATION. Prescriptions: New spironolactone 100 mg Tablet 100 mg PO QAM 30 Days Qty: 30 RF: 1 potassium chloride [Klor-Con M10] 10 mEq Tablet,Er Particles/Crystals 20 meq PO DAILY 30 Days Qty: 60 RF: 1 magnesium oxide 400 mg (241.3 mg magnesium) Tablet 400 mg PO BID 30 Days Qty: 60 RF: 1 thiamine HCl (vitamin B1) [Vitamin B-1] 100 mg Tablet 100 mg PO QAM 14 Days Qty: 14 RF: 1 folic acid 1 mg Tablet 1 mg PO QAM 14 Days Qty: 14 RF: 1 furosemide [Lasix] 40 mg tablet 40 mg PO DAILY 30 Days Qty: 30 RF: 1 Continued Centrum Silver Men 300-600-300 mcg Tablet 1 tab PO DAILY RF: 0 Discontinued ibuprofen [Advil] 200 mg Tablet 200 mg PO Q6H PRN (Reason: Pain) RF: 0 Stand-Alone Forms: [facility] Discharge Orders: Discharge Order (Routine); Ordered 09/18/18 Ordered By: Beny Nuñez Admission Data Admit Date/Time: 09/13/18 23:41 Attending Provider: Beny Nuñez Admit Provider: Anish Pepe Primary Care Provider: PCP,NO Other Providers: Anish Pepe ; Reji Cates ; Seth Whitman ; Loli Waldrop ; Giorgi Escalante ; Homer Camacho ; Arlette Rosario ; Adrianne Nickerson ; Kalin Nava ; Roly Tavares ; Lulu Flores ; Jasmina Darnell ; Adriane Bagley ; Salina Brand ; Jane Quevedo ; Zhao Erickson Service: Telemetry Medical Other Interventions: Discharge Summary Assessment (RN) Last Done: 09/18/18 16:10
[2018-09-22 08:06] LABS: Anti Nuclear Antibody Screen NEGATIVE (NEGATIVE); IgA Serum 1190 mg/dL (81-463); Tis Trans IgA >100 U/mL (<4)
[2018-09-23 10:00] LABS: Endomysial IgA Antibody Positive
== END 2018-09-18 18:40 | disposition home or self-care (01) | DRG 433 ==
LOC: ED 18:27 → SUATTDRO 23:41 → 2N 23:41